=== PATIENT | female | born 1990 | race Caucasian/White ===

== ENCOUNTER 2017-01-24 19:56 | Emergency (ER) | payer MEDICAID, OTHER ==
[~2017-01-24] VITALS: Ht 154.9 cm; Wt 59.0 kg
[2017-01-24] MEDS ORDERED: IBUP600T26 PO (20:04)
[2017-01-24] MEDS ORDERED: TYLE500T78 PO (20:05)
[2017-01-24 22:20] LABS: BASO % 0.5 % (0.0-1.0); EOS # 0.3 K/mm3 (0.0-0.50); EOS % 3.4 % (0.0-3.0); LARGE UNSTAINED CELL # 0.1 K/mm3 (0.0-0.4); LARGE UNSTAINED CELL % 1.6 % (0.0-4.0); LYMPH # 2.6 K/mm3 (1.5-6.5); LYMPH % 27.9 % (24.0-44.0); MEAN CORPUSCULAR HEMOGLOBIN 31.1 pg (27.0-33.0); MEAN CORPUSCULAR VOLUME 91.6 fl (80.0-96.0); MONO # 0.5 K/mm3 (0.0-0.8); MONO % 5.7 % (0.0-5.0); NEUTROPHILS # 5.4 K/mm3 (1.8-7.7); NEUTROPHILS % 60.8 % (36.0-66.0); PLATELET COUNT, AUTOMATED 275 k/mm3 (150-450); RED CELL DISTRIBUTION WIDTH 12.9 % (11.5-14.5); WHITE BLOOD COUNT 8.8 K/mm3 (4.0-10.0)
[2017-01-24 22:21] LABS: CONTROL LINE UCG INT CTR LINE PRESENT
[2017-01-24 22:48] LABS: ANION GAP 8 MEQ/L (8-16); BLOOD UREA NITROGEN 17 MG/DL (7-18); CALCIUM LEVEL 9.2 MG/DL (8.5-10.1); CARBON DIOXIDE LEVEL 26 MEQ/L (21-32); CHLORIDE LEVEL 106 MEQ/L (98-107); CREATININE FOR GFR 0.69 MG/DL (0.55-1.02); GLOMERULAR FILTRATION RATE > 60.0 (>60); GLUCOSE, FASTING 100 MG/DL (70-105); POTASSIUM SERUM 4.1 MEQ/L (3.5-5.1); SODIUM LEVEL 140 MEQ/L (136-145)
[2017-01-24] MEDS ORDERED: MACR100C3 PO (23:27)
[2017-01-24 23:30] VITALS: BP 138/84
[2017-01-24] MEDS ORDERED: NITROFURANTOIN (MACROBID) 100 MG CAP PO ONE (23:30)
== END 2017-01-24 23:36 | disposition home or self-care (01) ==
LOC: M ED 21:12
DX: R31.9 Hematuria, unspecified (principal)

== ENCOUNTER → 2017-02-23 | Outpatient (CLI) | payer OTHER ==
[~2017-02-23] MED LIST: IBUP600T26 PO; MACR100C3 PO; TYLE500T78 PO
--- NOTE | 2017-02-23 17:55 | REP ---
KUB, ONE VIEW: HISTORY: Hematuria. A small amount of air is present in the small and large intestine. There are no air fluid level or dilated loops of intestine. There is no pneumoperitoneum. Calcifications are present overlying the left kidney consistent with nephrolithiasis. A 4 mm calcification is present inferior to the right L2 transverse process. This likely corresponds to the ureteral calculus seen in a recent CT examination. Degenerative change is present in the spine. IMPRESSION: 1. Left nephrolithiasis. 2. There is a 4 mm calcification inferior to the right L2 transverse process. This likely corresponds to the ureteral calculus seen in a recent CT examination. Signed by Jameson Monahan MD 02/24/2017 08:38 A
== END ==
LOC: M SMT 15:15
PROVIDERS: ATTEND Nurse Practitioner Women's Health
DX: R31.0 Gross hematuria (principal)

== ENCOUNTER → 2017-03-02 | Outpatient (CLI) | payer OTHER ==
[2017-03-02 15:44] LABS: INR 1.03
[2017-03-02 16:09] LABS: MEAN CORPUSCULAR HEMOGLOBIN 32.1 pg (27.0-33.0); MEAN CORPUSCULAR HGB CONC 34.2 g/dl (32.0-36.5); MEAN CORPUSCULAR VOLUME 93.8 fl (80.0-96.0); WHITE BLOOD COUNT 6.4 K/mm3 (4.0-10.0)
[2017-03-02 16:19] LABS: CONTROL LINE HCG INT CTR LINE PRESENT
[2017-03-02 16:27] LABS: ANION GAP 9 MEQ/L (8-16); BLOOD UREA NITROGEN 6 MG/DL (7-18); CALCIUM LEVEL 8.8 MG/DL (8.5-10.1); CARBON DIOXIDE LEVEL 26 MEQ/L (21-32); CHLORIDE LEVEL 105 MEQ/L (98-107); CREATININE FOR GFR 0.75 MG/DL (0.55-1.02); GLOMERULAR FILTRATION RATE > 60.0 (>60); GLUCOSE, FASTING 113 MG/DL (70-105); POTASSIUM SERUM 3.8 MEQ/L (3.5-5.1); SODIUM LEVEL 140 MEQ/L (136-145)
== END ==
LOC: M LAB 13:17
PROVIDERS: ATTEND Nurse Practitioner Women's Health
DX: Z01.818 Encounter for other preprocedural examination (principal); N20.0 Calculus of kidney

== ENCOUNTER → 2017-03-04 | Day surgery (SDC) | payer OTHER ==
[~2017-03-04] VITALS: Ht 154.9 cm; Wt 59.0 kg
[~2017-03-04] MED LIST changes: +KETOROLAC 30 MG/ML VIAL (J1885) As Ordered ONE; +KETOROLAC 30 MG/ML VIAL (J1885) IV ONE; +LIDOCAINE 2% INJ 100 MG/5 ML SDV (FOR ANES.) As Ordered ONE; +LR 1,000 ML IV SCH; +METOCLOPRAMIDE INJ 10MG/2ML VIAL (J2765) As Ordered ONE; +METOCLOPRAMIDE INJ 10MG/2ML VIAL (J2765) IV ONE; +MORPHINE 2 MG/ML 1ML SYRINGE As Ordered ONE; +ONDANSETRON 4MG/2ML VIAL (J2405) As Ordered ONE; +ONDANSETRON 4MG/2ML VIAL (J2405) IV PRN; +PERCOCET 5MG/325MG TAB PO PRN; +PROPOFOL 200 MG/20 ML VIAL As Ordered ONE; +fentaNYL 100 MCG/2 ML INJECTION (J3010) IV PRN; +traMADol 50 MG TAB PO PRN
--- NOTE | 2017-03-04 09:13 | ROOPDOC ---
[facility] Report Of Operation Report of Operation DATE OF PROCEDURE: 03/04/17 PREPROCEDURE DIAGNOSIS: Right Kidney Stone POSTPROCEDURE DIAGNOSIS: Right Kidney Stone PROCEDURE: Right Extracorporeal Shockwave Lithotripsy (ESWL) SURGEON: Paramjit Sweet MD BELL TIER: None ANESTHESIA: Monitored Anesthesia Care (MAC) OPERATIVE INDICATIONS: This is a 26 year old female who was found to have a 6mm right ureteropelvic junction stone. It was recommended that she come to the operating room for the above listed procedure. DESCRIPTION OF PROCEDURE: The patient was brought to the operating room and MAC anesthesia was administered. Prophylactic antibiotics were infused. She was then placed in the supine position in preparation for right ESWL. Fluoroscopy was utilized to monitor stone position and fragmentation. Shockwaves were then delivered to the right kidney stone, ungated. There were no arrhythmias. The stone appeared to fragment well. After 2,500 shocks the procedure was concluded. The patient was awakened from anesthesia and transported to the recovery room in stable condition. ESTIMATED BLOOD LOSS: 0mL COMPLICATIONS: None SPECIMENS: None PLAN: The patient will follow up in clinic in a few weeks with imaging prior to assess for residual stone burden. PARAMJIT SWEET MD March 04, 2017 09:13
[2017-03-04] MEDS: MORPHINE 2 MG/ML 1ML SYRINGE IV PRN ×2 (09:30→09:45)
[2017-03-04 10:40] VITALS: BP 132/78
== END | disposition home or self-care (01) ==
LOC: M SDC 07:12
PROVIDERS: ATTEND Urology
DX: N20.0 Calculus of kidney (principal); D68.62 Lupus anticoagulant syndrome; F32.9 Major depressive disorder, single episode, unspecified; M06.9 Rheumatoid arthritis, unspecified; K21.9 Gastro-esophageal reflux disease without esophagitis; M79.7 Fibromyalgia; F17.290 Nicotine dependence, other tobacco product, uncomplicated; J30.2 Other seasonal allergic rhinitis; Z88.5 Allergy status to narcotic agent

== ENCOUNTER → 2017-03-29 | Outpatient (CLI) | payer OTHER ==
[~2017-03-29] MED LIST changes: -KETOROLAC 30 MG/ML VIAL (J1885) As Ordered ONE; -KETOROLAC 30 MG/ML VIAL (J1885) IV ONE; -LIDOCAINE 2% INJ 100 MG/5 ML SDV (FOR ANES.) As Ordered ONE; -LR 1,000 ML IV SCH; -METOCLOPRAMIDE INJ 10MG/2ML VIAL (J2765) As Ordered ONE; -METOCLOPRAMIDE INJ 10MG/2ML VIAL (J2765) IV ONE; -MORPHINE 2 MG/ML 1ML SYRINGE As Ordered ONE; -ONDANSETRON 4MG/2ML VIAL (J2405) As Ordered ONE; -ONDANSETRON 4MG/2ML VIAL (J2405) IV PRN; -PERCOCET 5MG/325MG TAB PO PRN; -PROPOFOL 200 MG/20 ML VIAL As Ordered ONE; -fentaNYL 100 MCG/2 ML INJECTION (J3010) IV PRN; -traMADol 50 MG TAB PO PRN
--- NOTE | 2017-03-30 02:32 | REP ---
Clinical: Nephrolithiasis. Comparison: 02/23/2017. Findings: 2-3 mm bilateral nephroliths are suggested. The previously suggested 4 mm calculus in the right mid ureter is not visualized on current examination. Pelvis demonstrates stable calculi in the right haydee pelvis consistent with phleboliths. No further abnormal calcifications are identified. Bowel gas pattern is nonspecific. Skeletal structures are stable. Feminine hygiene product noted in the pelvis. Impression: 1. Few 2-3 mm bilateral nephroliths again suggested. 2. Previously identified 4 mm calculus in the mid-right ureter not visualized on current exam. Signed by Berto Diane MD 03/30/2017 02:24 A
== END ==
LOC: M SMT 11:30
PROVIDERS: ATTEND Nurse Practitioner Family
DX: N20.0 Calculus of kidney (principal)

== ENCOUNTER 2017-06-16 21:50 | Emergency (ER) | payer MEDICAID, OTHER ==
[~2017-06-16] VITALS: Ht 154.9 cm; Wt 56.8 kg
[~2017-06-16 21:50] MED LIST changes: +IBUP-1022 PO; -IBUP600T26 PO; -MACR100C3 PO; +MACR100C43 PO
[2017-06-16] MEDS ORDERED: IBUPROFEN 600 MG TAB PO ONE (23:15)
[2017-06-16 23:24] LABS: BASO % 0.4 % (0.0-1.0); EOS # 0.3 K/mm3 (0.0-0.50); EOS % 2.9 % (0.0-3.0); LARGE UNSTAINED CELL # 0.1 K/mm3 (0.0-0.4); LYMPH # 2.4 K/mm3 (1.5-6.5); LYMPH % 19.7 % (24.0-44.0); MEAN CORPUSCULAR HEMOGLOBIN 31.1 pg (27.0-33.0); MEAN CORPUSCULAR HGB CONC 33.3 g/dl (32.0-36.5); MEAN CORPUSCULAR VOLUME 93.2 fl (80.0-96.0); MONO # 0.6 K/mm3 (0.0-0.8); MONO % 5.6 % (0.0-5.0); NEUTROPHILS # 8.1 K/mm3 (1.8-7.7); NEUTROPHILS % 70.5 % (36.0-66.0); PLATELET COUNT, AUTOMATED 276 k/mm3 (150-450); RED CELL DISTRIBUTION WIDTH 13.1 % (11.5-14.5); WHITE BLOOD COUNT 11.5 K/mm3 (4.0-10.0)
[2017-06-17 00:02] LABS: ANION GAP 5 MEQ/L (8-16); BLOOD UREA NITROGEN 9 MG/DL (7-18); CALCIUM LEVEL 9.4 MG/DL (8.5-10.1); CARBON DIOXIDE LEVEL 27 MEQ/L (21-32); CHLORIDE LEVEL 107 MEQ/L (98-107); CREATININE FOR GFR 0.81 MG/DL (0.55-1.02); GLOMERULAR FILTRATION RATE > 60.0 (>60); GLUCOSE, FASTING 101 MG/DL (70-105); POTASSIUM SERUM 4.3 MEQ/L (3.5-5.1); SODIUM LEVEL 139 MEQ/L (136-145)
[2017-06-17 00:08] LABS: ERYTHROCYTE SEDIMENTATION RATE 9 mm/hr (0-20)
[2017-06-17 00:24] VITALS: BP 122/72
--- NOTE | 2017-06-17 08:29 | REP ---
Right ankle series: Four views. History: Right ankle swelling after trauma. Findings: Four views of the right ankle demonstrate an intact ankle mortise. No fracture or subluxation is seen. Impression: Negative right ankle views. Signed by Alexandru Robins MD 06/17/2017 08:57 A
== END 2017-06-17 00:47 | disposition home or self-care (01) ==
LOC: M ED 21:50
DX: M25.571 Pain in right ankle and joints of right foot (principal); M06.9 Rheumatoid arthritis, unspecified; F33.9 Major depressive disorder, recurrent, unspecified; M32.9 Systemic lupus erythematosus, unspecified; J30.9 Allergic rhinitis, unspecified; Z88.5 Allergy status to narcotic agent; F17.210 Nicotine dependence, cigarettes, uncomplicated

== ENCOUNTER 2017-08-02 15:11 | Emergency (ER) | payer OTHER ==
[~2017-08-02] VITALS: Ht 154.9 cm; Wt 56.4 kg
[2017-08-02 15:11] VITALS: BP 115/74
[2017-08-02] MEDS ORDERED: DOXY100C37 PO (15:33)
== END 2017-08-02 15:39 | disposition home or self-care (01) ==
LOC: M ED 15:11
DX: S40.862A Insect bite (nonvenomous) of left upper arm, initial encounter (principal); W57.XXXA Bitten or stung by nonvenomous insect and other nonvenomous arthropods, initial encounter; Y92.89 Other specified places as the place of occurrence of the external cause; Y93.89 Activity, other specified; Y99.8 Other external cause status; D68.62 Lupus anticoagulant syndrome; Z88.5 Allergy status to narcotic agent; J30.89 Other allergic rhinitis; F17.210 Nicotine dependence, cigarettes, uncomplicated

== ENCOUNTER 2017-08-27 11:48 | Emergency (ER) | payer OTHER ==
[~2017-08-27] VITALS: Ht 154.9 cm; Wt 59.1 kg
[~2017-08-27 11:48] MED LIST changes: +DOXY100C37 PO
[2017-08-27] MEDS ORDERED: NAPR500T3 PO (13:13)
[2017-08-27] MEDS ORDERED: ROBA500T PO (13:13)
[2017-08-27 13:25] VITALS: BP 119/74
== END 2017-08-27 13:22 | disposition home or self-care (01) ==
LOC: M ED 11:48
DX: M54.5 Low back pain (principal); M32.9 Systemic lupus erythematosus, unspecified; V49.40XA Driver injured in collision with unspecified motor vehicles in traffic accident, initial encounter; Y92.410 Unspecified street and highway as the place of occurrence of the external cause; Y93.89 Activity, other specified; Y99.9 Unspecified external cause status

== ENCOUNTER → 2017-12-18 | Outpatient (REF) | payer OTHER ==
[2017-12-18 16:37] LABS: APPEARANCE, URINE HAZY (CLEAR); BACTERIA, URINE AUTO NEGATIVE (NEGATIVE); BILIRUBIN, URINE AUTO NEGATIVE (NEGATIVE); BLOOD, URINE BLOOD NEGATIVE (NEGATIVE); COLOR, URINE YELLOW (YELLOW); GLUCOSE, URINE (UA) AUTO NEGATIVE (NEGATIVE); KETONE, URINE AUTO NEGATIVE (NEGATIVE); LEUKOCYTE ESTERASE, URINE AUTO NEGATIVE (NEGATIVE); MUCUS, URINE SMALL (NEGATIVE); NITRITE, URINE AUTO NEGATIVE (NEGATIVE); PROTEIN, URINE AUTO NEGATIVE (NEGATIVE); RBC, URINE AUTO 3 /HPF (0-3); SPECIFIC GRAVITY URINE AUTO 1.013 (1.002-1.035); SQUAMOUS EPITHELIAL CELL UR AU 0 /HPF (0-6); UROBILINOGEN, URINE AUTO 0.2 mg/dL (0.0-2.0); WBC, URINE AUTO 1 /HPF (0-3)
== END ==
LOC: M LAB REF 15:54
DX: N39.0 Urinary tract infection, site not specified (principal)
CPT/HCPCS: 81001

== ENCOUNTER → 2017-12-22 | Outpatient (REF) | payer OTHER ==
[2017-12-22 12:35] LABS: APPEARANCE, URINE HAZY (CLEAR); BACTERIA, URINE AUTO NEGATIVE (NEGATIVE); BILIRUBIN, URINE AUTO NEGATIVE (NEGATIVE); BLOOD, URINE BLOOD NEGATIVE (NEGATIVE); COLOR, URINE YELLOW (YELLOW); GLUCOSE, URINE (UA) AUTO NEGATIVE (NEGATIVE); KETONE, URINE AUTO NEGATIVE (NEGATIVE); LEUKOCYTE ESTERASE, URINE AUTO NEGATIVE (NEGATIVE); MUCUS, URINE SMALL (NEGATIVE); NITRITE, URINE AUTO NEGATIVE (NEGATIVE); PROTEIN, URINE AUTO NEGATIVE (NEGATIVE); RBC, URINE AUTO 18 /HPF (0-3); SPECIFIC GRAVITY URINE AUTO 1.015 (1.002-1.035); SQUAMOUS EPITHELIAL CELL UR AU 3 /HPF (0-6); UROBILINOGEN, URINE AUTO 0.2 mg/dL (0.0-2.0); WBC, URINE AUTO 1 /HPF (0-3)
== END ==
LOC: M LAB REF 12:10
DX: N39.0 Urinary tract infection, site not specified (principal)

== ENCOUNTER 2017-12-23 17:22 | Emergency (ER) | payer OTHER ==
[2017-12-23 18:32] LABS: KETONE, URINE AUTO RFX NEGATIVE (NEGATIVE); LEUKOCYTE ESTERASE UR AUTO RFX NEGATIVE (NEGATIVE); MUCUS, URINE RFX SMALL (NEGATIVE); NITRITE, URINE AUTO RFX NEGATIVE (NEGATIVE); RBC, URINE AUTO RFX 14 /HPF (0-3); SPECIFIC GRAVITY UR AUTO RFX 1.013 (1.002-1.035); SQUAM EPITHELIAL CELL UR AURFX 3 /HPF (0-6); WBC, URINE AUTO RFX 1 /HPF (0-3)
== END 2017-12-23 19:19 | disposition left against medical advice (07) ==
LOC: M ED 17:22
DX: Z53.21 Procedure and treatment not carried out due to patient leaving prior to being seen by health care provider (principal)

== ENCOUNTER → 2017-12-23 | Outpatient (CLI) | payer OTHER | LOC: M RAD 12:25 | DX: R10.31 Right lower quadrant pain (principal) | CPT/HCPCS: 76856 ==

== ENCOUNTER 2018-04-18 06:48 | Emergency (ER) | payer OTHER | END 2018-04-18 07:38 | disposition home or self-care (01) | LOC: M ED 06:48 | DX: M79.645 Pain in left finger(s) (principal); M32.9 Systemic lupus erythematosus, unspecified; J30.2 Other seasonal allergic rhinitis; Z72.0 Tobacco use; Z88.5 Allergy status to narcotic agent | CPT/HCPCS: 99282 ==

== ENCOUNTER → 2018-08-09 | Outpatient (CLI) | payer OTHER | LOC: M RAD 10:38 | DX: M79.641 Pain in right hand (principal); R60.0 Localized edema | CPT/HCPCS: 73130 ==

== ENCOUNTER → 2018-10-10 | Outpatient (REF) | payer OTHER ==
[~2018-10-10] MED LIST changes: +KEFL500C17 PO; +NAPR-885 PO; +PRED20TA PO; +ROBA500T PO; +TRAM50TA2 PO
[2018-10-10 16:47] LABS: BASO % 0.6 % (0.0-1.0); EOS # 0.2 10^3/uL (0.0-0.50); EOS % 3.3 % (0.0-3.0); HEMATOCRIT 44.4 % (36.0-47.0); HEMOGLOBIN 15.1 g/dl (12.0-15.5); LYMPH # 1.9 10^3/uL (1.5-6.5); LYMPH % 27.7 % (24.0-44.0); MEAN CORPUSCULAR HEMOGLOBIN 31.1 pg (27.0-33.0); MEAN CORPUSCULAR VOLUME 91.4 fl (80.0-96.0); MONO # 0.5 10^3/uL (0.0-0.8); MONO % 7.8 % (0.0-5.0); NEUTROPHILS # 4.2 10^3/uL (1.8-7.7); NEUTROPHILS % 60.3 % (36.0-66.0); PLATELET COUNT, AUTOMATED 286 10^3/uL (150-450); RED BLOOD COUNT 4.86 10^6/uL (4.00-5.40); WHITE BLOOD COUNT 6.9 10^3/uL (4.0-10.0)
[2018-10-10 16:50] LABS: APPEARANCE, URINE CLEAR (CLEAR); BACTERIA, URINE AUTO NEGATIVE (NEGATIVE); BILIRUBIN, URINE AUTO NEGATIVE (NEGATIVE); BLOOD, URINE BLOOD NEGATIVE (NEGATIVE); COLOR, URINE YELLOW (YELLOW); GLUCOSE, URINE (UA) AUTO NEGATIVE (NEGATIVE); KETONE, URINE AUTO NEGATIVE (NEGATIVE); LEUKOCYTE ESTERASE, URINE AUTO NEGATIVE (NEGATIVE); MUCUS, URINE SMALL (NEGATIVE); NITRITE, URINE AUTO NEGATIVE (NEGATIVE); PROTEIN, URINE AUTO NEGATIVE (NEGATIVE); RBC, URINE AUTO 1 /HPF (0-3); SPECIFIC GRAVITY URINE AUTO 1.014 (1.002-1.035); SQUAMOUS EPITHELIAL CELL UR AU 1 /HPF (0-6); UROBILINOGEN, URINE AUTO 0.2 mg/dL (0.0-2.0); WBC, URINE AUTO 1 /HPF (0-3)
[2018-10-10 17:01] LABS: ALBUMIN 4.3 GM/DL (3.2-5.2); ALT/SGPT 13 U/L (12-78); BILIRUBIN,TOTAL 0.4 MG/DL (0.2-1.0); BLOOD UREA NITROGEN 8 MG/DL (7-18); C REACTIVE PROTEIN QUANTITATIV 0.42 MG/DL (0.00-0.30); CALCIUM LEVEL 9.4 MG/DL (8.5-10.1); CARBON DIOXIDE LEVEL 26 MEQ/L (21-32); CHLORIDE LEVEL 103 MEQ/L (98-107); GLOMERULAR FILTRATION RATE > 60.0 (>60); GLUCOSE, FASTING 82 MG/DL (70-100); POTASSIUM SERUM 4.2 MEQ/L (3.5-5.1); RHEUMATOID FACTOR QUANT 85.6 IU/ML (<15.0); SODIUM LEVEL 138 MEQ/L (136-145); TOTAL PROTEIN 8.1 GM/DL (6.4-8.2)
[2018-10-10 17:41] LABS: ERYTHROCYTE SEDIMENTATION RATE 4 mm/hr (0-20)
[2018-10-13 00:31] LABS: ANA (HEP2) Positive (.); CYCLIC CITRULLINATED PEPTIDE > 250 units (0-19)
== END ==
LOC: M SFHCLERA 10:28
PROVIDERS: ATTEND Family Medicine
DX: M32.9 Systemic lupus erythematosus, unspecified (principal)

== ENCOUNTER → 2019-03-30 | Outpatient (REF) | payer OTHER, SELFPAY ==
[2019-03-30 14:17] LABS: CHLAMYDIA DNA AMPLIFICATION NEGATIVE (NEGATIVE); GC DNA AMPLIFICATION NEGATIVE (NEGATIVE)
== END ==
LOC: M SFHCLERA 09:50
PROVIDERS: ATTEND Family Medicine
DX: N76.0 Acute vaginitis (principal)

== ENCOUNTER 2019-11-05 13:53 | Emergency (ER) | payer MEDICAID, OTHER, SELFPAY ==
[~2019-11-05] VITALS: Ht 154.9 cm; Wt 55.5 kg
[2019-11-05] MEDS ORDERED: IBUP200C25 PO (14:42)
[2019-11-05] MEDS ORDERED: NAPR220C14 PO (14:42)
[2019-11-05 15:33] LABS: BASO % 0.7 % (0.0-1.0); EOS # 0.2 10^3/uL (0.0-0.5); EOS % 3.8 % (0.0-3.0); HEMATOCRIT 41.3 % (36.0-47.0); HEMOGLOBIN 13.5 g/dl (12.0-15.5); LYMPH # 1.5 10^3/uL (1.5-5.0); MEAN CORPUSCULAR HGB CONC 32.7 g/dl (32.0-36.5); MEAN CORPUSCULAR VOLUME 91.8 fl (80.0-96.0); MONO # 0.5 10^3/uL (0.0-0.8); MONO % 8.9 % (0.0-5.0); NEUTROPHILS # 3.7 10^3/uL (1.5-8.5); NEUTROPHILS % 61.4 % (36.0-66.0); PLATELET COUNT, AUTOMATED 283 10^3/uL (150-450)
[2019-11-05 15:51] LABS: ALBUMIN 4.1 GM/DL (3.2-5.2); ALT/SGPT 14 U/L (12-78); BILIRUBIN,DIRECT 0.1 MG/DL (0.0-0.2); BILIRUBIN,TOTAL 0.3 MG/DL (0.2-1.0); BLOOD UREA NITROGEN 8 MG/DL (7-18); CALCIUM LEVEL 9.1 MG/DL (8.5-10.1); CARBON DIOXIDE LEVEL 29 MEQ/L (21-32); CHLORIDE LEVEL 106 MEQ/L (98-107); CREATININE FOR GFR 0.69 MG/DL (0.55-1.30); GLOMERULAR FILTRATION RATE > 60.0 (>60); GLUCOSE, FASTING 111 MG/DL (70-100); LIPASE 78 U/L (73-393); POTASSIUM SERUM 4.1 MEQ/L (3.5-5.1); SODIUM LEVEL 140 MEQ/L (136-145); TOTAL PROTEIN 7.6 GM/DL (6.4-8.2)
--- NOTE | 2019-11-05 17:18 | REPVR ---
PROCEDURE INFORMATION: Exam: US Pelvis, Transvaginal Exam date and time: 11/05/2019 4:56 PM Age: 29 years old Clinical indication: Pelvic pain TECHNIQUE: Imaging protocol: Real-time transvaginal pelvic ultrasound with image documentation. Transvaginal imaging was used for better evaluation of the endometrium and adnexa. COMPARISON: US PELVIC NON-OB COMPLETE 12/23/2017 12:50 PM FINDINGS: Uterus/cervix: Uterus measures 8.4 x 4.4 x 4.9 cm. Endometrial echo complex measures 8 mm. Right adnexa: Right ovary measures 2.8 x 2 x 2.3 cm. Normal flow. Hypoechoic predominantly solid lesion with a cystic center in the right ovary measures 1.4 x 1 x 1.2 cm likely representing a corpus luteum. Left adnexa: Left ovary measures 2.6 x 1.4 x 2.3 cm. Normal flow. Cyst in the left ovary measures 1.5 x 0.8 x 1.5 cm. Free fluid: None. IMPRESSION: No acute findings. Electronically signed by: Anthony Silva On 11/05/2019 17:18:23 PM
[2019-11-05 18:15] VITALS: BP 122/72
[2019-11-05 18:16] LABS: CHLAMYDIA DNA AMPLIFICATION NEGATIVE (NEGATIVE); GC DNA AMPLIFICATION NEGATIVE (NEGATIVE)
== END 2019-11-05 18:16 | disposition home or self-care (01) ==
LOC: M ED 13:53
DX: N83.291 Other ovarian cyst, right side (principal); N83.292 Other ovarian cyst, left side; M32.9 Systemic lupus erythematosus, unspecified; M06.9 Rheumatoid arthritis, unspecified; M79.7 Fibromyalgia; Z87.442 Personal history of urinary calculi; F17.200 Nicotine dependence, unspecified, uncomplicated; F12.10 Cannabis abuse, uncomplicated

== ENCOUNTER 2020-05-10 16:57 | Emergency (ER) | payer MEDICAID, OTHER ==
[~2020-05-10] VITALS: Ht 160 cm; Wt 56.8 kg
[~2020-05-10 16:57] MED LIST changes: +IBUP200C25 PO; +NAPR220C14 PO
[2020-05-10] MEDS ORDERED: ISOVUE-370 76% 100ML VIAL As Ordered ONE (18:53)
[2020-05-10 20:44] VITALS: BP 119/68
--- NOTE | 2020-05-10 21:09 | REPVR ---
PROCEDURE INFORMATION: Exam: CT Angiography Chest With Contrast Exam date and time: 05/10/2020 7:46 PM Age: 29 years old Clinical indication: Chest pain; Additional info: Chest pain/elevated d-dimer TECHNIQUE: Imaging protocol: Computed tomographic angiography of the chest with intravenous contrast. 3D rendering: MIP and/or 3D reconstructed images were created by the technologist. Radiation optimization: All CT scans at this facility use at least one of these dose optimization techniques: automated exposure control; mA and/or kV adjustment per patient size (includes targeted exams where dose is matched to clinical indication); or iterative reconstruction. Contrast material: ISOVUE 370; Contrast volume: 75 ml; Contrast route: INTRAVENOUS (IV); COMPARISON: CR Chest, 1 view 05/10/2020 6:20 PM FINDINGS: Pulmonary arteries: Normal. No pulmonary emboli. Aorta: Unremarkable. No aortic aneurysm. No aortic dissection. Lungs: Unremarkable. No consolidation. No masses. Pleural space: Unremarkable. No pneumothorax. No pleural effusion. Heart: Unremarkable. No cardiomegaly. No pericardial effusion. Lymph nodes: Unremarkable. No enlarged lymph nodes. Bones/joints: Unremarkable. No acute fracture. Soft tissues: Unremarkable. IMPRESSION: No acute findings. Electronically signed by: Heraclio Arrieta On 05/10/2020 21:09:00 PM
--- NOTE | 2020-05-11 09:13 | REP ---
CHEST: REASON: Dyspnea. FINDINGS: The technique utilized in obtaining the radiograph has magnified the cardiac silhouette and accentuated the interstitial markings. The superior mediastinal structures are midline. The cardiac silhouette is unremarkable in size, shape, and position. The diaphragmatic surfaces of the lungs are regular, and the costophrenic angles are clear. The pulmonary perez are clear. The imaged osseous structures are intact. IMPRESSION: There is no acute cardiopulmonary disease. Electronically Signed by Srikanth Ellison DO 05/11/2020 09:14 A
--- NOTE | 2020-05-12 19:08 | ECGEPIP ---
[facility] - ED Test Date: 2020-05-10 Pat Name: PIO NEVILLE Department: Room: - Gender: Female Metrology Manager: bibi : 1990 Requested By: Laura Francois Order Number: [id number] Reading MD: Jaycob Almaraz Measurements Intervals [place] Rate: 58 P: 40 DE: 134 QRS: 66 QRSD: 98 T: 31 QT: 383 QTc: 376 Interpretive Statements SINUS BRADYCARDIA NONSPECIFIC T WAVE ABNORMALITIES NO PRIORS FOR COMPARISON Electronically Signed on 05-12-2020 19:08:38 EDT by Jaycob Almaraz
== END 2020-05-10 20:45 | disposition home or self-care (01) ==
LOC: M ED 16:57
DX: J06.9 Acute upper respiratory infection, unspecified (principal); R00.1 Bradycardia, unspecified; Z53.21 Procedure and treatment not carried out due to patient leaving prior to being seen by health care provider; F41.9 Anxiety disorder, unspecified; F32.9 Major depressive disorder, single episode, unspecified; Z72.0 Tobacco use
CPT/HCPCS: 71045; 71275; 84702; 85379; 87880; 93005; 99284; Q9967; U0003

== ENCOUNTER 2020-05-21 16:30 | Emergency (ER) | payer OTHER ==
--- NOTE | 2020-07-12 10:44 | REP ---
CT OF THE CERVICAL SPINE: HISTORY: Neck pain. TECHNIQUE: Axial noncontrast images from the skull base to the thoracic inlet with coronal and sagittal reformations. FINDINGS: Alignment and lordosis is maintained. Vertebral bodies are intact. No acute fracture/compression injury or subluxation is appreciated. Very minimal age related changes at the C5-6 and C6-7 levels include endplate sclerosis with subtle marginal spurring and minimal disc space narrowing. The posterior elements and spinous processes are intact. The neural foramen appear patent. The spinal canal appears patent. The paravertebral soft tissues are within normal limits. IMPRESSION: Very minimal age related changes at the C5-6 and C6-7 levels. MTDD
== END 2020-05-21 17:31 | disposition home or self-care (01) ==
LOC: M ED 16:30
DX: S16.1XXA Strain of muscle, fascia and tendon at neck level, initial encounter (principal); T75.1XXA Unspecified effects of drowning and nonfatal submersion, initial encounter; X58.XXXA Exposure to other specified factors, initial encounter; Y92.832 Beach as the place of occurrence of the external cause; Y93.11 Activity, swimming; M32.9 Systemic lupus erythematosus, unspecified; F33.9 Major depressive disorder, recurrent, unspecified; F17.210 Nicotine dependence, cigarettes, uncomplicated

== ENCOUNTER → 2020-06-11 | Outpatient (REF) | payer OTHER ==
[2020-08-05 03:46] LABS: HCG, SERUM QUANTITATIVE < 1.0 MIU/ML
[2020-08-05 04:05] LABS: HCG, SERUM QUALITATIVE NEGATIVE (NEGATIVE)
== END ==
LOC: M SFHCLERA 11:27
PROVIDERS: ATTEND Family Medicine
DX: Z32.00 Encounter for pregnancy test, result unknown (principal)

== ENCOUNTER 2020-06-16 08:43 | Emergency (ER) | payer OTHER ==
[~2020-06-16] VITALS: Ht 154.9 cm; Wt 53.8 kg
[2020-06-16] MEDS ORDERED: NS 1,000 ML IV ONE (09:30)
[2020-06-16 10:02] LABS: BASO # 0.1 10^3/uL (0.0-0.2); BASO % 0.8 % (0.0-1.0); EOS # 0.2 10^3/uL (0.0-0.5); EOS % 3.3 % (0.0-3.0); HEMATOCRIT 37.3 % (36.0-47.0); HEMOGLOBIN 12.9 g/dl (12.0-15.5); LYMPH # 1.2 10^3/uL (1.5-5.0); LYMPH % 19.6 % (24.0-44.0); MEAN CORPUSCULAR HEMOGLOBIN 31.5 pg (27.0-33.0); MEAN CORPUSCULAR HGB CONC 34.6 g/dl (32.0-36.5); MEAN CORPUSCULAR VOLUME 91.2 fl (80.0-96.0); MONO # 0.5 10^3/uL (0.0-0.8); MONO % 8.3 % (0.0-5.0); NEUTROPHILS # 4.1 10^3/uL (1.5-8.5); NEUTROPHILS % 67.7 % (36.0-66.0); PLATELET COUNT, AUTOMATED 270 10^3/uL (150-450); RED BLOOD COUNT 4.09 10^6/uL (4.00-5.40); WHITE BLOOD COUNT 6.1 10^3/uL (4.0-10.0)
[2020-06-16 10:20] LABS: ALBUMIN 3.6 GM/DL (3.2-5.2); ALT/SGPT 12 U/L (12-78); BILIRUBIN,DIRECT < 0.1 MG/DL (0.0-0.2); BILIRUBIN,TOTAL 0.3 MG/DL (0.2-1.0); BLOOD UREA NITROGEN 10 MG/DL (7-18); CALCIUM LEVEL 8.9 MG/DL (8.5-10.1); CARBON DIOXIDE LEVEL 26 MEQ/L (21-32); CHLORIDE LEVEL 108 MEQ/L (98-107); CREATININE FOR GFR 0.67 MG/DL (0.55-1.30); GLOMERULAR FILTRATION RATE > 60.0 (>60); GLUCOSE, FASTING 86 MG/DL (70-100); HCG, SERUM QUANTITATIVE < 1.0 MIU/ML; SODIUM LEVEL 141 MEQ/L (136-145)
[2020-06-16 10:36] VITALS: BP 120/79
[2020-06-16 10:51] LABS: CHLAMYDIA DNA AMPLIFICATION NEGATIVE (NEGATIVE); GC DNA AMPLIFICATION NEGATIVE (NEGATIVE)
== END 2020-06-16 10:47 | disposition home or self-care (01) ==
LOC: M ED 08:43
DX: N94.4 Primary dysmenorrhea (principal); N93.9 Abnormal uterine and vaginal bleeding, unspecified; M32.9 Systemic lupus erythematosus, unspecified; Z87.42 Personal history of other diseases of the female genital tract; F17.200 Nicotine dependence, unspecified, uncomplicated

== ENCOUNTER 2020-11-10 10:12 | Emergency (ER) | payer OTHER ==
[~2020-11-10] VITALS: Ht 154.9 cm; Wt 52.8 kg
--- OUTSIDE RECORDS SUMMARY | 2020-11-10 10:19 | CCD | Continuity of Care Document ---
Author Author Ondina MOODY DPDavid Organization Unknown Address [address] [place] [address], [address] [place] [address] Phone [phone] Problems Description No Information Available Social History Type Date Description Comments Sex Unknown ETOH Use Occasionally consumes liquor may be once a month Tobacco Use Start: Unknown Patient is a current smoker, smo kes every day 15 year hx smoking 1 PPD Allergies, Adverse Reactions, Alerts Description No Known Drug Allergies Medications Active Medications SIG Qnty Indications Ordering Provide r Date Naproxen 500mg Tablets 1 tab twice daily with food 60tabs Fredy Moody DPM 10/14/2020 Sertraline HCL 100mg Tablets Jameson King DO Amoxicillin/Clavulanate Potassium 875-125mg Tablets Take One Tablet By Mouth Twice A Day For 10 Days Unknown Valacyclovir HCL 1gm Tablets Take One Tablet By Mouth Three Times A Day For 10 Days Un known Sertraline HCL 50mg Tablets Take One Tablet By Mouth Every Day Unknown Tizanidine HCL 4mg Tablets Take One Tablet By Mouth Every Evening as Needed For Muscle Spasms Unknown Immunizations Description No Information Available Vital Signs Date Vital Result Comment 10/14/2020 2:22pm Height 61 inches 5'1" Weight 116.00 lb BP Systolic 92 mmHg BP Diastolic 58 mmHg Heart Rate 63 /min BMI (Body Mass Index) 21.9 kg/m2 Results Description No Information Available Procedures Date Code Description Status 10/14/2020 39540 X-Ray Foot Complete Completed Medical Devices Description No Information Available Encounters Type Date Location Provider Dx Diagnosis Office Visit 10/14/2020 2:15p [facility] Fredy Moody DPM M21.612 Bunion of left foot M21.622 Bunionette of left foot Assessments Date Code Description Provider 10/14/2020 M21.612 Bunion of left foot Fredy ospina DPM 10/14/2020 M21.622 Bunionette of left foot Fredy Moody DPM Plan of Treatment Future Appointment(s):* 11/18/2020 2:00 pm - Fredy Moody DPM at [facility] Functional Status Description No Information Available Mental Status Description No Information Available Referrals Description No Information Available
--- OUTSIDE RECORDS SUMMARY | 2020-11-10 10:19 | CCD | Continuity of Care Document ---
Author Author Ondina GONZALEZ DPM Organization Unknown Address [address] [place] [address], [address] [place] [address] Phone [phone] Problems Description No Information Available Social History [...] tab twice daily with food 60tabs Fredy Gonzalez DPM 10/14/2020 Sertraline HCL 100mg Tablets Jameson [...] kg/m2 Results Description No Information Available Procedures Description No Information Available Medical Devices Description No Information Available Encounters Description No Information Available Assessments Description No Information Available Plan of Treatment Future Appointment(s):* 11/18/2020 2:00 pm - Fredy Gonzalez DPM at [place] [facility] Functional Status Description No Information Available Mental Status Description No Information Available Referrals Description No Information Available
--- OUTSIDE RECORDS SUMMARY | 2020-11-10 10:19 | CCD ---
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 Name Role Phone Moe MOODY DPM Unavailable Unavailable Moe MOODY DPM Unavailable Unavailable Moe MOODY DPM Unavailable Unavailable Moe MOODY DPM Unavailable Unavailable Moe MOODY DPM Unavailable Unavailable Moe MOODY DPM Unavailable Unavailable Moe MOODY DPM Unavailable Unavailable MAJAK, R NELDA DPM Unavailable Unavailable MAJAK, R NELDA DPM Unavailable Unavailable MAJAK, R NELDA DPM Unavailable Unavailable MAJAK, R NELDA DPM Unavailable Unavailable MAJAK, R NELDA DPM Unavailable Unavailable MAJAK, R NELDA DPM Unavailable Unavailable MAJAK, R NELDA DPM Unavailable Unavailable MAJAK, R NELDA DPM Unavailable Unavailable MAJAK, R NELDA DPM Unavailable Unavailable MAJAK, R NELDA DPM Unavailable Unavailable MAJAK, R NELDA DPM Unavailable Unavailable MAJAK, R NELDA DPM Unavailable Unavailable MAJAK, R NELDA DPM Unavailable Unavailable MAJAK, R NELDA DPM Unavailable Unavailable MAJAK, R NELDA DPM Unavailable Unavailable MAJAK, R NELDA DPM Unavailable Unavailable MAJAK, R NELDA DPM Unavailable Unavailable MAJAK, R NELDA DPM Unavailable Unavailable MAJAK, R NELDA DPM Unavailable Unavailable MAJAK, R NELDA DPM Unavailable Unavailable MAJAK, R NELDA DPM Unavailable Unavailable MAJAK, R NELDA DPM Unavailable Unavailable MAJAK, R NELDA DPM Unavailable Unavailable Campanaro, Mare Manisha PA Unavailable Unavailable Campanaro, Mare Manisha PA Unavailable Unavailable Campanaro, Mare Manisha PA Unavailable Unavailable Campanaro, Mare Manisha PA Unavailable Unavailable Campanaro, Mare Manisha PA Unavailable Unavailable Campanaro, Mare Manisha PA Unavailable Unavailable Campanaro, Mare Manisha PA Unavailable Unavailable Campanaro, Mare Manisha PA Unavailable Unavailable Campanaro, Mare Manisha PA Unavailable Unavailable Campanaro, Mare Manisha PA Unavailable Unavailable Campanaro, Mare Manisha PA Unavailable Unavailable Campanaro, Mare Manisha PA Unavailable Unavailable Campanaro, Mare Manisha PA Unavailable Unavailable Campanaro, Mare Manisha PA Unavailable Unavailable Campanaro, Mare Manisha PA Unavailable Unavailable Campanaro, Mare Manisha PA Unavailable Unavailable Campanaro, Mare Manisha PA Unavailable Unavailable Campanaro, Mare Manisha PA Unavailable Unavailable GUGA, SAMUEL PA Unavailable Unavailable GUGA, SAMUEL PA Unavailable Unavailable GUGA, SAMUEL PA Unavailable Unavailable GUGA, SAMUEL PA Unavailable Unavailable GUGA, SAMUEL PA Unavailable Unavailable GUGA, SAMUEL PA Unavailable Unavailable Jade, Doreen SOLE EDGE INKER MACHINE Unavailable Unavailable Jade, Doreen SOLE EDGE INKER MACHINE Unavailable Unavailable Jade, Doreen SOLE EDGE INKER MACHINE Unavailable Unavailable Jade, Doreen SOLE EDGE INKER MACHINE Unavailable Unavailable Jade, Doreen SOLE EDGE INKER MACHINE Unavailable Unavailable Jade, Doreen SOLE EDGE INKER MACHINE Unavailable Unavailable Jade, Doreen SOLE EDGE INKER MACHINE Unavailable Unavailable Jade, Doreen SOLE EDGE INKER MACHINE Unavailable Unavailable Jade, Doreen SOLE EDGE INKER MACHINE Unavailable Unavailable Jade, Doreen SOLE EDGE INKER MACHINE Unavailable Unavailable Jade, Doreen SOLE EDGE INKER MACHINE Unavailable Unavailable Re-disclosure Warning The records that you are about to access may contain information from federally-assisted alcohol or drug abuse programs. If such information is present, then the following federally mandated warning applies: This information has been disclosed to you from records protected by federal confidentiality rules (42 CFR part 2). The federal rules prohibit you from making any further disclosure of this information unless further disclosure is expressly permitted by the written consent of the person to whom it pertains or as otherwise permitted by 42 CFR part 2. A general authorization for the release of medical or other information is NOT sufficient for this purpose. The Federal rules restrict any use of the information to criminally investigate or prosecute any alcohol or drug abuse patient.The records that you are about to access may contain highly sensitive health information, the redisclosure of which is protected by Article 27-F of the [facility] Public Health law. If you continue you may have access to information: Regarding HIV / AIDS; Provided by facilities licensed or operated by the [facility] Office of Mental Health; or Provided by the [facility] Office for People With Developmental Disabilities. If such information is present, then the following [facility] mandated warning applies: This information has been disclosed to you from confidential records which are protected by state law. State law prohibits you from making any further disclosure of this information without the specific written consent of the person to whom it pertains, or as otherwise permitted by law. Any unauthorized further disclosure in violation of state law may result in a fine or senior living sentence or both. A general authorization for the release of medical or other information is NOT sufficient authorization for further disc losure. Allergies and Adverse Reactions Type Description Substance Reaction Status Data Source(s ) Drug allergy Percocet acetaminophen / oxycodone Severe headache Ac tive eCW1 ([facility]) Vicodin Vicodin Vicodin Nausea/Vomiting Active eCW1 ([facility]) Family History Family Member Name Family Member Gender Family Member Status Date o f Status Description Data Source(s) Unknown Male Problem MEDENT ([facility]) Encounters Encounter Providers Location Date Indications Data Source(s ) Outpatient Attender: NELDA MOODY [facility] Office 09/25 01:15:00 PM EST MEDENT ([facility] Unknown [address] [facility] [address] 05/13/2020 12:00:00 AM EDT eCW1 [facility] Unknown [address] [facility] [address] 05/06/2020 12:00:00 AM EDT [facility] Unknown [address] [facility] [address] 04/15/2020 12:00:00 AM EDT eCW1 ([facility] ([facility]) [facility] Scheduled Visit [address] [place] [address] 04/12/2020 12:00:00 AM EDT eCW1 ([facility]) [facility] [address] [place] [address] 04/03/2020 12:00:00 AM EDT eCW1 ([facility]) Unknown [address] [facility] [address] 03/28/2020 12:00:00 AM EDT [facility]CW1 [facility] Outpatient Attender: Doreen burt 03/26/2020 04:45:00 PM EDT MEDENT ([facility] Outpatient [address] [facility] [address] 03/21/2020 12:00:00 AM EDT eCW1 ([facility]) [facility] [address] [place] [address] 03/20/2020 12:00:00 AM EDT eCW1 ([facility]) [facility] [place] [address] [facility] [address] 03/06/2020 12:00:00 AM EDT eCW1 ([facility]) Outpatient Attender: Manisha quintero 12/28/2019 03:40:00 PM EST MEDENT ([facility]) Outpatient Referrer: SAMUEL HYMAN 11/29/2019 02:17:00 PM EST [facility] [place] [address] [facility] [address] 11/15/2019 12:00:00 AM EST eCW1 ([facility]) [facility] [place] [address] [facility] [address] 11/06/2019 12:00:00 AM EST eCW1 ([facility]) Medications Medication Brand Name Start Date Product Form Dose Route Admi nistrative Instructions Pharmacy Instructions Status Indications Reaction Description Data Source(s) 500 mg 2020 12:00:00 AM EST tablet 60 TAKE ONE TABLET BY MOUTH TWICE A DAY WITH FOOD TAKE ONE TABLET BY MOUTH TWICE A DAY WITH FOOD SOLD: 10/20/2020 [facility] Naproxen 500 MG Oral Tablet Naproxen 10/14/2020 12:00:00 AM EST active MEDENT ([facility] 100 mg 03/28/2020 12:00:00 AM EDT tablet 30 TAKE ONE TABLET BY MOUTH EVERY DAY TAKE ONE TABLET BY MOUTH EVERY DAY SOLD: 03/29/2020 [facility] 100 mg 03/28/2020 12:00:00 AM EDT tablet 30 TAKE ONE TABLET BY MOUTH EVERY DAY TAKE ONE TABLET BY MOUTH EVERY DAY SOLD: 05/04/2020 [facility] Sertraline 100 MG Oral Tablet Sertraline HCl 100 MG Sertrali ne HCl 100 MG 03/28/2020 12:00:00 AM EDT 1.0 {tablet} active Sertraline HCl 100 MG eCW1 ([facility]) Sertraline 100 MG Oral Tablet Sertraline HCl 100 MG Sertrali ne HCl 100 MG 03/28/2020 12:00:00 AM EDT 1.0 {tablet} active Sertraline HCl 100 MG eCW1 ([facility]) Sertraline 100 MG Oral Tablet Sertraline HCl 100 MG Sertrali ne HCl 100 MG 03/28/2020 12:00:00 AM EDT 1.0 {tablet} active Sertraline HCl 100 MG eCW1 ([facility]) Sertraline 100 MG Oral Tablet Sertraline HCl 100 MG Sertrali ne HCl 100 MG 03/28/2020 12:00:00 AM EDT 1.0 {tablet} active Sertraline HCl 100 MG eCW1 ([facility]) Sertraline 100 MG Oral Tablet Sertraline HCl 100 MG Sertrali ne HCl 100 MG 03/28/2020 12:00:00 AM EDT 1.0 {tablet} active Sertraline HCl 100 MG eCW1 ([facility]) Sertraline 100 MG Oral Tablet Sertraline HCl 100 MG Sertrali ne HCl 100 MG 03/28/2020 12:00:00 AM EDT 1.0 {tablet} active Sertraline HCl 100 MG eCW1 ([facility]) 1 gram 03/26/2020 12:00:00 AM EDT tablet 30 TAKE ONE TABLET BY MOUTH THREE TIMES A DAY FOR 10 DAYS TAKE ONE TABLET BY MOUTH THREE TIMES A DAY FOR 10 DAYS SOLD: 03/27/2020 [facility] 875-125 mg 03/26/2020 12:00:00 AM EDT tablet 20 TAKE ONE TABLET BY MOUTH TWICE A DAY FOR 10 DAYS TAKE ONE TABLET BY MOUTH TWICE A DAY FOR 10 DAYS SOLD: 03/27/2020 [facility] valacyclovir 1000 MG Oral Tablet Valacyclovir HCL 03/26/2020 12:00: 00 AM EDT active MEDENT ([facility]) Amoxicillin 875 MG / Clavulanate 125 MG Oral Tablet Am oxicillin/Clavulanate Potassium 03/26/2020 12:00:00 AM EDT ORAL active MEDENT ([facility]) 50 mg 03/06/2020 12:00:00 AM EDT tablet 30 TAKE ONE TABLET BY MOUTH EVERY DAY TAKE ONE TABLET BY MOUTH EVERY DAY SOLD: 03/06/2020 [facility] tizanidine 4 MG Oral Tablet Tizanidine HCL 12/28/2019 12:00:00 AM EST completed MEDENT ([facility]) 4 mg 12/28/2019 12:00:00 AM EST tablet 14 TAKE ONE TABLET BY MOUTH EVERY EVENING NEEDED FOR MUSCLE SPASMS TAKE ONE TABLET BY MOUTH EVERY EVENING A S NEEDED FOR MUSCLE SPASMS SOLD: 12/28/2019 [facility] Insurance Providers Payer name Policy type / Coverage type Policy ID Covered constitution party ID Covered constitution party's relationship to aguayo Policy Aguayo Plan Information [facility] [id number] [facility] [id number] [id number] SP [id number] MEDICAID M [id number] S [id number] MEDICAID [id number] SP [id number] SELF PAY ONLY [id number] SP [id number] [facility] [id number] SP [id number] [facility]-Med[facility] [id number] ANSI-Commercial [id number] ANSI-Commercial [id number] ANSI-Medicaid [id number] ANSI-Commercial [id number] ANSI-Medicaid [id number] [facility] [id number] SP [id number] ANSI-Commercial [id number] ANSI-Medicaid [id number] ANSI-Medicaid [id number] ANSI-Commercial [id number] ANSI-Commercial [id number] ANSI-Medicaid [id number] ANSI-Commercial [id number] ANSI-Medicaid [id number] [facility] O [id number] S [id number] [employer] COMMUNITY PLAN MCDO [id number] SP [id number] [facility] Communty Plan Medicaid [id number] Self [id number] [facility] COMMUNTY PLAN [id number] 18 [id number] UNHC COMMUNITY PLAN XIX [id number] 18 [id number] UNHC COMMUNITY PLAN XIX ETRET 18 ETRET UNHC COMMUNITY PLAN MCDO [id number] SP [id number] PROGRESSIVE CO NO FAULT [id number] SP [id number] PROGRESSIVE CO NO FAULT [id number] SP [id number] ALEXANDER [id number] SP [id number] [place] [id number] S [id number] MEDICAID M [id number] Self [id number] [place] [id number] 18 [id number] MEDICAID [id number] SP [id number] EXCELLUS BCBS B [id number] S [id number] EXCELLUS I [id number] Self [id number] SELF PAY UNAVAILABLE SP UNAVAILA BLE BLUE CROSS COPE PLAN [id number] SP [id number] MEDICAID W [id number] S [id number] BLUE CHOICE OPTION O [id number] S [id number] Problems, Conditions, and Diagnoses Code Display Name Description Problem Type Effective Dates Data Source(s) F33.2 90390699 Major depressive dis order, recurrent severe without psychotic features Problem 03/20/2020 12:00:00 AM EDT eCW1 ([facility]) F41.1 91706940 Generalized anxiety disorder Problem 020 12:00:00 AM EDT eCW1 ([facility]) F33.2 50114641 Major depressive dis order, recurrent severe without psychotic features Problem 03/20/2020 12:00:00 AM EDT eCW1 ([facility]) F41.1 33786382 Generalized anxiety disorder Problem 020 12:00:00 AM EDT eCW1 ([facility]) F32.9 198796190 Major depressive dis order, remission status unspecified, unspecified whether recurrent Problem 03/06/2020 12:00:00 AM EDT eCW 1 ([facility]) F32.9 [id number] Major depressive dis order, remission status unspecified, unspecified whether recurrent Problem 03/06/2020 12:00:00 AM EDT eCW 1 ([facility]) Surgeries/Procedures Procedure Description Date Indications Data Source(s) RADEX FOOT COMPLETE MINIMUM 3 VIEWS 10/14/2020 12:00:0 0 AM EST MED[facility] ([facility] PSYCH DIAGNOSTIC EVALUATION 03/20/2020 12:00:00 AM EDT eCW1 ([facility]) Therapeutic, Prophylactic Or Diagnostic Injection Subq/Im 12/28/2019 12:00:00 AM EST MEDENT ([facility] Results ID Date Data Source [id number] 05/10/2020 05:55:00 PM EDT [facility] Name Value Range Interpretation Code Description Data Rosa rce(s) Supporting Document(s) SARS coronavirus 2 RNA [facility] This lab was ordered by [facility] and reported by [facility]. Procedure Social History Code Duration Value Status Description Data Source(s ) Smoking 03/21/2020 12:00:00 AM EDT Current Smoker completed Curre nt Smoker eCW1 ([facility]) Smoking 03/21/2020 12:00:00 AM EDT Current Smoker completed Curre nt Smoker eCW1 ([facility]) Smoking 03/21/2020 12:00:00 AM EDT Current Smoker completed Curre nt Smoker eCW1 ([facility]) Smoking 03/21/2020 12:00:00 AM EDT Current Smoker completed Curre nt Smoker eCW1 ([facility]) Smoking 03/21/2020 12:00:00 AM EDT Current Smoker completed Curre nt Smoker eCW1 ([facility]) Smoking 03/21/2020 12:00:00 AM EDT Current Smoker completed Curre nt Smoker eCW1 ([facility]) Vital Signs ID Date Data Source UNK Name Value Range Interpretation Code Description Data Source(s) Body mass index (BMI) [Ratio] 21.9 kg/m2 21.9 k g/m2 MEDENT [facility] Heart rate 63 /min 63 /min MEDENT ([facility] Diastolic blood pressure 58 mm[Hg] 58 mm[Hg] MEDENT ([facility] Systolic blood pressure 92 mm[Hg] 92 mm[Hg] M EDENT ([facility] Body weight 116.00 [lb_av] 116.00 [lb_av] MEDEN T ([facility] Body height 61 [in_i] 61 [in_i] MED[facility] 5'1" Body mass index (BMI) [Ratio] 22.3 kg/m2 22.3 k g/m2 MEDENT ([facility]) Body height 61 [in_i] 61 [in_i] MEDENT ([facility]) 5'1" Body weight 118.00 [lb_av] 118.00 [lb_av] MEDEN T ([facility], [facility]) Body temperature 98.6 [degF] 98.6 [degF] MEDENT ([facility], [facility]) Oxygen saturation in Arterial blood by Pulse oximetry 98 % 98 % MEDENT ([facility], [facility]) Respiratory rate 17 /min 17 /min MEDENT ( [facility], [facility]) Heart rate 77 /min 77 /min MEDENT ([facility], [facility]) Diastolic blood pressure 79 mm[Hg] 79 mm[Hg] MEDENT ([facility]) Systolic blood pressure 125 mm[Hg] 125 mm[Hg] M EDENT ([facility], [facility]) Diastolic blood pressure 67 mm[Hg] 67 mm[Hg] eCW1 ([facility]) Systolic blood pressure 93 mm[Hg] 93 mm[Hg] e CW1 ([facility]) Body temperature 98.4 [degF] 98.4 [degF] eCW1 ( [facility]) Respiratory rate 18 /min 18 /min eCW1 ([facility]) Heart rate 88 /min 88 /min eCW1 ([facility]) Body mass index (BMI) [Ratio] 22.29 kg/m2 22.29 kg/m2 W1 ([facility]) Body height 61 [in_i] 61 [in_i] eCW1 ([facility]) Body weight 118 [lb_av] 118 [lb_av] eCW1 ([facility]) Diastolic blood pressure 78 mm[Hg] 78 mm[Hg] eCW1 ([facility]) Systolic blood pressure 130 mm[Hg] 130 mm[Hg] e CW1 ([facility]) Body temperature 98.6 [degF] 98.6 [degF] eCW1 ( [facility]) Respiratory rate 18 /min 18 /min eCW1 ([facility]) Heart rate 95 /min 95 /min eCW1 ([facility]) Body mass index (BMI) [Ratio] 23.05 kg/m2 23.05 kg/m2 eCW1 ([facility]) Body height 61 [in_us] 61 [in_us] eCW1 ([facility]) Body weight Measured 122 [lb_av] 122 [lb_av] eC W1 ([facility]) Body mass index (BMI) [Ratio] 23.6 kg/m2 23.6 k g/m2 MEDENT ([facility], [facility]) Body height 61 [in_i] 61 [in_i] MEDENT ([facility]) 5'1" Body weight 125.00 [lb_av] 125.00 [lb_av] MEDEN T ([facility], [facility]) Body temperature 98.9 [degF] 98.9 [degF] MEDENT ([facility]) Oxygen saturation in Arterial blood by Pulse oximetry 98 % 98 % MEDENT ([facility]) Respiratory rate 14 /min 14 /min MEDENT ( [facility]) Heart rate 93 /min 93 /min MEDENT ([facility]) Diastolic blood pressure 79 mm[Hg] 79 mm[Hg] MEDENT ([facility]) Systolic blood pressure 128 mm[Hg] 128 mm[Hg] M EDENT ([facility]) Patient Treatment Plan of Care Planned Activity Planned Date Details Description Data Source (s) Sertraline 100 MG Oral Tablet 03/28/2020 12:00:00 AM EDT eCW1 ([facility]) Sertraline 100 MG Oral Tablet 03/28/2020 12:00:00 AM EDT eCW1 ([facility]) Sertraline 100 MG Oral Tablet 03/28/2020 12:00:00 AM EDT eCW1 ([facility]) Sertraline 100 MG Oral Tablet 03/28/2020 12:00:00 AM EDT eCW1 ([facility]) Sertraline 100 MG Oral Tablet 03/28/2020 12:00:00 AM EDT eCW1 ([facility]) Sertraline 100 MG Oral Tablet 03/28/2020 12:00:00 AM EDT eCW1 ([facility])
[2020-11-10] MEDS ORDERED: NS 1,000 ML IV ONE (10:30)
[2020-11-10] MEDS ORDERED: KETOROLAC 30 MG/ML 1ML VIAL IV ONE (10:30)
[2020-11-10] MEDS ORDERED: ONDANSETRON 4MG/2ML VIAL IV ONE (10:30)
[2020-11-10 10:49] LABS: BASO % 0.6 % (0.0-1.0); EOS # 0.2 10^3/uL (0.0-0.5); HEMATOCRIT 36.6 % (36.0-47.0); HEMOGLOBIN 12.7 g/dl (12.0-15.5); LYMPH # 1.6 10^3/uL (1.5-5.0); MEAN CORPUSCULAR HEMOGLOBIN 31.1 pg (27.0-33.0); MEAN CORPUSCULAR HGB CONC 34.7 g/dl (32.0-36.5); MEAN CORPUSCULAR VOLUME 89.7 fl (80.0-96.0); MONO # 0.6 10^3/uL (0.0-0.8); MONO % 8.2 % (0.0-5.0); NEUTROPHILS # 4.6 10^3/uL (1.5-8.5); NEUTROPHILS % 64.9 % (36.0-66.0); PLATELET COUNT, AUTOMATED 299 10^3/uL (150-450); RED BLOOD COUNT 4.08 10^6/uL (4.00-5.40); WHITE BLOOD COUNT 7.1 10^3/uL (4.0-10.0)
--- OUTSIDE RECORDS SUMMARY | 2020-11-10 10:57 | CCD ---
Author Author [facility] Organization [facility] Address Unknown Phone Unavailable Care Team Providers Care Webfocus Developer Name Role Phone Moe MOODY DPM Unavailable [...] GUGA, SAMUEL PA Unavailable Unavailable Jade, Doreen CARPENTER AND JOINER Unavailable Unavailable Jade, Doreen CARPENTER AND JOINER Unavailable Unavailable Jade, Doreen CARPENTER AND JOINER Unavailable Unavailable Jade, Doreen CARPENTER AND JOINER Unavailable Unavailable Jade, Doreen CARPENTER AND JOINER Unavailable Unavailable Jade, Doreen CARPENTER AND JOINER Unavailable Unavailable Jade, Doreen CARPENTER AND JOINER Unavailable Unavailable Jade, Doreen CARPENTER AND JOINER Unavailable Unavailable Jade, Doreen CARPENTER AND JOINER Unavailable Unavailable Jade, Doreen CARPENTER AND JOINER Unavailable Unavailable Jade, Doreen CARPENTER AND JOINER Unavailable Unavailable Re-disclosure Warning The records that [...] is protected by Article 27-F of the [facility] Public Health law. If you continue you may have access to information: Regarding HIV / AIDS; Provided by facilities licensed or operated by the [facility] Office of Mental Health; or Provided by the [facility] Office for People With Developmental Disabilities. If such information is present, then the following [facility] mandated warning applies: This information has [...] law may result in a fine or alf sentence or both. A general authorization for the release of medical or other information is NOT sufficient authorization for further disc losure. Allergies and Adverse Reactions Type Description Substance Reaction Status Data Source(s ) Drug allergy Percocet acetaminophen / oxycodone Severe headache Ac tive eCW1 ([facility]) Vicodin Vicodin Vicodin Nausea/Vomiting Active eCW1 ([facility]) Family History Family Member Name Family Member Gender Family Member Status Date o f Status Description Data Source(s) Unknown Male Problem MEDENT ([facility]) Encounters Encounter Providers Location Date Indications Data Source(s ) Outpatient Attender: NELDA MOODY [facility] Office 09/25 01:15:00 PM EST MEDENT ([facility] Unknown [address] [facility] [id number] 05/13/2020 12:00:00 AM EDT eCW1 ([facility]) Unknown [address] [facility] [id number] 05/06/2020 12:00:00 AM EDT eCW1 ([facility]) Unknown [address] [facility] [id number] 04/15/2020 12:00:00 AM EDT eCW1 ([facility]) ([facility]) [facility] Scheduled Visit [address] [place] [phone] 04/12/2020 12:00:00 AM EDT eCW1 ([facility]) [facility] [address] [place] [id number] 04/03/2020 12:00:00 AM EDT eCW1 ([facility]) Unknown [address] [facility] [id number] 03/28/2020 12:00:00 AM EDT [facility]CW1 [facility]) Outpatient Attender: Doreen burt 03/26/2020 04:45:00 PM EDT MEDENT ([facility] Outpatient [address] [facility] [id number] 03/21/2020 12:00:00 AM EDT eCW1 ([facility]) [facility] [address] [place] [phone] 03/20/2020 12:00:00 AM EDT eCW[facility]) [facility] [address] [facility] [address] 03/06/2020 12:00:00 AM EDT eCW1 ([facility]) Outpatient Attender: Manisha quintero 12/28/2019 03:40:00 PM EST MEDENT [facility] Outpatient Referrer: SAMUEL HYMAN 11/29/2019 02:17:00 PM EST [facility] [address] [facility] [address] 11/15/2019 12:00:00 AM EST eCW1 ([facility]) [facility] [address] [facility] [address] 11/06/2019 12:00:00 AM EST eCW1 ([facility]) Medications Medication Brand Name Start Date Product [...] Naproxen 10/14/2020 12:00:00 AM EST active MEDENT ([facility] 100 mg 03/28/2020 12:00:00 AM EDT [...] {tablet} active Sertraline HCl 100 MG eCW1 ([facility]) Sertraline 100 MG Oral Tablet Sertraline HCl 100 MG Sertrali ne HCl 100 MG 03/28/2020 12:00:00 AM EDT 1.0 {tablet} active Sertraline HCl 100 MG eCW1 ([facility]) Sertraline 100 MG Oral Tablet Sertraline HCl 100 MG Sertrali ne HCl 100 MG 03/28/2020 12:00:00 AM EDT 1.0 {tablet} active Sertraline HCl 100 MG eCW1 ([facility]) Sertraline 100 MG Oral Tablet Sertraline HCl 100 MG Sertrali ne HCl 100 MG 03/28/2020 12:00:00 AM EDT 1.0 {tablet} active Sertraline HCl 100 MG eCW1 ([facility]) Sertraline 100 MG Oral Tablet Sertraline HCl 100 MG Sertrali ne HCl 100 MG 03/28/2020 12:00:00 AM EDT 1.0 {tablet} active Sertraline HCl 100 MG eCW1 ([facility]) Sertraline 100 MG Oral Tablet Sertraline HCl 100 MG Sertrali ne HCl 100 MG 03/28/2020 12:00:00 AM EDT 1.0 {tablet} active Sertraline HCl 100 MG eCW1 ([facility]) 1 gram 03/26/2020 12:00:00 AM EDT tablet 30 TAKE ONE TABLET BY MOUTH THREE TIMES A DAY FOR 10 DAYS TAKE ONE TABLET BY MOUTH THREE TIMES A DAY FOR 10 DAYS SOLD: 03/27/2020 [facility] 875-125 mg 03/26/2020 12:00:00 AM EDT tablet 20 TAKE ONE TABLET BY MOUTH TWICE A DAY FOR 10 DAYS TAKE ONE TABLET BY MOUTH TWICE A DAY FOR 10 DAYS SOLD: 03/27/2020 [facility] valacyclovir 1000 MG Oral Tablet Valacyclovir HCL 03/26/2020 12:00: 00 AM EDT active MEDENT ([facility], [facility]) Amoxicillin 875 MG / Clavulanate 125 MG Oral Tablet Am oxicillin/Clavulanate Potassium 03/26/2020 12:00:00 AM EDT ORAL active MEDENT ([facility], [facility]) 50 mg 03/06/2020 12:00:00 AM EDT tablet 30 TAKE ONE TABLET BY MOUTH EVERY DAY TAKE ONE TABLET BY MOUTH EVERY DAY SOLD: 03/06/2020 [facility] tizanidine 4 MG Oral Tablet Tizanidine HCL 12/28/2019 12:00:00 AM EST completed MEDENT ([facility], [facility]) 4 mg 12/28/2019 12:00:00 AM EST tablet 14 TAKE ONE TABLET BY MOUTH EVERY EVENING NEEDED FOR MUSCLE SPASMS TAKE ONE TABLET BY MOUTH EVERY EVENING A S NEEDED FOR MUSCLE SPASMS SOLD: 12/28/2019 [facility] Insurance Providers Payer name Policy type / Coverage type Policy ID Covered green party ID Covered green party's relationship to aguayo Policy Aguayo Plan Information [facility] [id number] [facility] [id number] EMEDNY [id number] SP [id number] MEDICAID M [id number] MEDICAID [id number] SP [id number] SELF PAY ONLY [id number] SP [id number] [facility] CARE [id number] SP [id number] [facility]-Medicaid [id number] ANSI-Commercial [id number] ANSI-Commercial [id number] ANSI-Medicaid [id number] ANSI-Commercial [id number] ANSI-Medicaid [id number] [facility] [id number] SP [id number] ANSI-Commercial [id number] ANSI-Medicaid [id number] ANSI-Medicaid [id number] ANSI-Commercial [id number] ANSI-Commercial [id number] ANSI-Medicaid [id number] ANSI-Commercial [id number] ANSI-Medicaid [id number] [facility] O [id number] S [id number] [employer] COMMUNITY PLAN MCDO [id number] SP [id number] [facility] Communty Plan Medicaid [id number] Self [id number] [facility] COMMUNTY PLAN [place] [id number] [employer] COMMUNITY PLAN XIX [id number] 18 [id number] [employer] COMMUNITY PLAN XIX ETRET 18 ETRET [employer]HC COMMUNITY PLAN [id number] SP [id number] PROGRESSIVE CO NO FAULT [id number] SP [id number] PROGRESSIVE CO NO FAULT [id number] SP [id number] ALEXANDER [id number] SP [id number] [place] [id number] S [id number] MEDICAID M [id number] Self [id number] [place] [id number] 18 [id number] MEDICAID [id number] SP [id number] EXCELLUS BCBS B [id number] S [id number] EXCELLUS I [id number] Self [id number] SELF PAY UNAVAILABLE SP UNAVAILA BLE BLUE CROSS COPE PLAN [id number] SP [id number] MEDICAID [id number] S [id number] BLUE CHOICE OPTION O [id number] S [id number] Problems, Conditions, and Diagnoses Code Display Name Description Problem Type Effective Dates Data Source(s) F33.2 85963923 Major depressive dis order, recurrent severe without psychotic features Problem 03/20/2020 12:00:00 AM EDT eCW1 ([facility]) F41.1 [id number] Generalized anxiety disorder Problem 020 12:00:00 AM EDT eCW1 ([facility]) F33.2 32729853 Major depressive dis order, recurrent severe without psychotic features Problem 03/20/2020 12:00:00 AM EDT eCW1 ([facility]) F41.1 [id number] Generalized anxiety disorder Problem 020 12:00:00 AM EDT eCW1 ([facility]) F32.9 [id number] Major depressive dis order, remission status unspecified, unspecified whether recurrent Problem 03/06/2020 12:00:00 AM EDT eCW 1 ([facility]) F32.9 [id number] Major depressive dis order, remission status unspecified, unspecified whether recurrent Problem 03/06/2020 12:00:00 AM EDT eCW 1 ([facility]) Surgeries/Procedures Procedure Description Date Indications Data Source(s) RADEX FOOT COMPLETE MINIMUM 3 VIEWS 10/14/2020 12:00:0 0 AM EST MEDENT ([facility] PSYCH DIAGNOSTIC EVALUATION 03/20/2020 12:00:00 AM EDT eCW1 ([facility]) Therapeutic, Prophylactic Or Diagnostic Injection Subq/Im 12/28/2019 12:00:00 AM EST MEDENT ([facility]) Results ID Date Data Source [id number] 05/10/2020 05:55:00 PM EDT [facility] Name Value Range Interpretation Code Description Data Rosa rce(s) Supporting Document(s) SARS coronavirus 2 RNA [facility] This lab was ordered by [facility] and reported by [facility]. Procedure Social History Code Duration Value Status Description Data Source(s ) Smoking 03/21/2020 12:00:00 AM EDT Current Smoker completed Curre nt Smoker eCW1 ([facility]) Smoking 03/21/2020 12:00:00 AM EDT Current Smoker completed Curre nt Smoker eCW1 ([facility]) Smoking 03/21/2020 12:00:00 AM EDT Current Smoker completed Curre nt Smoker eCW1 ([facility]) Smoking 03/21/2020 12:00:00 AM EDT Current Smoker completed Curre nt Smoker eCW1 ([facility]) Smoking 03/21/2020 12:00:00 AM EDT Current Smoker completed Curre nt Smoker eCW1 ([facility]) Smoking 03/21/2020 12:00:00 AM EDT Current Smoker completed Curre nt Smoker eCW1 ([facility]) Vital Signs ID Date Data Source UNK Name Value Range Interpretation Code Description Data Source(s) Body mass index (BMI) [Ratio] 21.9 kg/m2 21.9 k g/m2 MEDENT ([facility] Heart rate 63 /min 63 /min MEDENT ([facility] Diastolic blood pressure 58 mm[Hg] 58 mm[Hg] MEDENT ([facility] Systolic blood pressure 92 mm[Hg] 92 mm[Hg] M EDENT ([facility] Body weight 116.00 [lb_av] 116.00 [lb_av] MEDEN T ([facility] Body height 61 [in_i] 61 [in_i] MEDENT ([facility] 5'1" Body mass index (BMI) [Ratio] 22.3 kg/m2 22.3 k g/m2 MEDENT ([facility], [facility]) Body height 61 [in_i] 61 [in_i] MEDENT ([facility], [facility]) 5'1" Body weight 118.00 [lb_av] 118.00 [lb_av] MEDEN T ([facility], [facility]) Body temperature 98.6 [degF] 98.6 [degF] MEDENT ([facility], [facility]) Oxygen saturation in Arterial blood by Pulse oximetry 98 % 98 % MEDENT ([facility], [facility]) Respiratory rate 17 /min 17 /min MEDENT ( [facility], [facility]) Heart rate 77 /min 77 /min MEDENT ([facility], [facility]) Diastolic blood pressure 79 mm[Hg] 79 mm[Hg] MEDENT ([facility], [facility]) Systolic blood pressure 125 mm[Hg] 125 mm[Hg] M EDENT ([facility], [facility]) Diastolic blood pressure 67 mm[Hg] 67 mm[Hg] eCW1 ([facility]) Systolic blood pressure 93 mm[Hg] 93 mm[Hg] e CW1 ([facility]) Body temperature 98.4 [degF] 98.4 [degF] eCW1 ( [facility]) Respiratory rate 18 /min 18 /min eCW1 ([facility]) Heart rate 88 /min 88 /min eCW1 ([facility]) Body mass index (BMI) [Ratio] 22.29 kg/m2 22.29 kg/m2 W1 ([facility]) Body height 61 [in_i] 61 [in_i] eCW1 ([facility]) Body weight 118 [lb_av] 118 [lb_av] eCW1 ([facility]) Diastolic blood pressure 78 mm[Hg] 78 mm[Hg] eCW1 ([facility]) Systolic blood pressure 130 mm[Hg] 130 mm[Hg] e CW1 ([facility]) Body temperature 98.6 [degF] 98.6 [degF] eCW1 ( [facility]) Respiratory rate 18 /min 18 /min eCW1 ([facility]) Heart rate 95 /min 95 /min eCW1 ([facility]) Body mass index (BMI) [Ratio] 23.05 kg/m2 23.05 kg/m2 eCW1 ([facility]) Body height 61 [in_us] 61 [in_us] eCW1 ([facility]) Body weight Measured 122 [lb_av] 122 [lb_av] eC W1 ([facility]) Body mass index (BMI) [Ratio] 23.6 kg/m2 23.6 k g/m2 MEDENT ([facility], [facility]) Body height 61 [in_i] 61 [in_i] MEDENT ([facility]) 5'1" Body weight 125.00 [lb_av] 125.00 [lb_av] MEDEN T ([facility], [facility]) Body temperature 98.9 [degF] 98.9 [degF] MEDENT ([facility], [facility]) Oxygen saturation in Arterial blood by Pulse oximetry 98 % 98 % MEDENT ([facility], [facility]) Respiratory rate 14 /min 14 /min MEDENT ( [facility], [facility]) Heart rate 93 /min 93 /min MEDENT ([facility], [facility]) Diastolic blood pressure 79 mm[Hg] 79 mm[Hg] MEDENT ([facility], [facility]) Systolic blood pressure 128 mm[Hg] 128 mm[Hg] M EDENT ([facility], [facility]) Patient Treatment Plan of Care Planned Activity Planned Date Details Description Data Source (s) Sertraline 100 MG Oral Tablet 03/28/2020 12:00:00 AM EDT eCW1 ([facility]) Sertraline 100 MG Oral Tablet 03/28/2020 12:00:00 AM EDT eCW1 ([facility]) Sertraline 100 MG Oral Tablet 03/28/2020 12:00:00 AM EDT eCW1 ([facility]) Sertraline 100 MG Oral Tablet 03/28/2020 12:00:00 AM EDT eCW1 ([facility]) Sertraline 100 MG Oral Tablet 03/28/2020 12:00:00 AM EDT eCW1 ([facility]) Sertraline 100 MG Oral Tablet 03/28/2020 12:00:00 AM EDT eCW1 ([facility])
[2020-11-10] MEDS ORDERED: MORPHINE 2 MG/ML 1ML VIAL (J2270) IV ONE (11:30)
--- NOTE | 2020-11-10 12:08 | REP ---
INDICATION: left flank/LLQ pain, prev hx of ureteral calc, eval for same COMPARISON: 05/23/2016. TECHNIQUE: CT Scan of the abdomen and pelvis was performed without intravenous contrast. Sagittal and coronal reconstruction images performed. FINDINGS: Lung bases: Unremarkable. Liver: Liver is enlarged, measuring approximately 19.5 cm in length. Gallbladder: Unremarkable. Spleen: Grossly unremarkable.. Adrenals: Normal. Pancreas: Grossly unremarkable.. Kidneys: Two adjacent stones are seen in the upper pole the right kidney, the larger 5 mm in diameter. Two 5 mm stones are seen in the mid right kidney. A 3 mm calcification is seen in the right lower pole. A 5 mm calcification is seen in the left upper pole. There is a 3 mm calcification in the mid left kidney. There is moderate left hydroureteronephrosis. This is caused by 6 mm calculus at the left ureterovesical junction. Small and large bowel: Grossly unremarkable.. Free fluid: None. Abdominal aorta: No aneurysm. Adenopathy: None. Appendix: Not inflamed. Osseous structures: There are degenerative changes of the spine without compression deformity. Pelvis: No mass. No bladder calculus seen. IMPRESSION: There is a 6 mm calculus at the left ureterovesical junction causing moderate left hydroureteronephrosis. There are multiple bilateral intrarenal calculi. Hepatomegaly. <Electronically signed by Vamsi Rehman > 11/10/20 [id number]
[2020-11-10 12:50] VITALS: BP 105/67
[2020-11-10] MEDS ORDERED: ONDA4TAB6 PO (12:52)
[2020-11-10] MEDS ORDERED: OXYC1TAB23 PO (12:52)
[2020-11-10] MEDS ORDERED: FLOM0.4C39 PO (12:52)
[2020-11-10] MEDS ORDERED: KETO10TAB PO (12:52)
[2020-11-10] MEDS ORDERED: CEPH500C PO (12:56)
[2020-11-10] MEDS ORDERED: PERC5TAB12 PO (13:01)
== END 2020-11-10 13:02 | disposition home or self-care (01) ==
LOC: M ED 10:12
DX: N13.2 Hydronephrosis with renal and ureteral calculous obstruction (principal); N39.0 Urinary tract infection, site not specified; R31.9 Hematuria, unspecified; Z79.899 Other long term (current) drug therapy
CPT/HCPCS: 74176; 80047; 81001; 83605; 84702; 85025; 96361; 96374; 96375; 99284; J1885; J2270; J2405

== ENCOUNTER → 2021-04-01 | Outpatient (CLI) | payer OTHER ==
[~2021-04-01] MED LIST changes: +CEPH500C PO; +FLOM0.4C39 PO; +KETO10TAB PO; +ONDA4TAB6 PO; +OXYC1TAB23 PO; +PERC5TAB12 PO
--- NOTE | 2021-04-01 14:56 | REP ---
INDICATION: RIGHT HAND MASS - LUCINA US COMPARISON: None. TECHNIQUE: AP, lateral, bilateral oblique views right hand. FINDINGS: Subchondral cystic, periarticular sclerosis and small erosive changes are identified involving the osseous structures at the 4th metacarpophalangeal joint. The remainder of the hand appears normal. Findings are nonspecific and may reflect an old or chronic inflammatory process. No periarticular calcifications are identified and no obvious fracture is appreciated. IMPRESSION: Focal changes at the 4th metacarpophalangeal joint as described above. Findings are nonspecific and should be correlated with physical examination and history.. No acute fracture or dislocation. <Electronically signed by Berto Diane > 04/01/21 [id number]
--- NOTE | 2021-04-02 05:52 | REP ---
INDICATION: MASS ON LEFT FOREARM - XR AFTER COMPARISON: None TECHNIQUE: Realtime B-mode grayscale and color ultrasound examination using linear high-frequency transducer. FINDINGS: Directed ultrasound examination along the proximal aspect of the left forearm was performed. Posterior to the elbow are 3 distinct hypoechoic essentially avascular subcutaneous lesions measuring 1.0 x 1.0 x 0.4 cm, 1.0 x 2.3 x 0.7 cm, and 0.6 x 1.2 x 0.5 cm. These findings are nonspecific by ultrasound examination. IMPRESSION: 1. Nonspecific hypoechoic lesions in the subcutaneous tissue. Findings cannot be further characterized by ultrasound. Clinical/physical correlation is required. Consider MRI examination if further imaging is necessary. <Electronically signed by Berto Diane > 04/02/21 [id number]
== END ==
LOC: M RAD 13:49
PROVIDERS: ATTEND Nurse Practitioner Family
DX: R22.33 Localized swelling, mass and lump, upper limb, bilateral (principal)

== ENCOUNTER → 2021-04-23 | Outpatient (CLI) | payer OTHER ==
[~2021-04-23] MED LIST changes: -DOXY100C37 PO; +DOXY1CAP62 PO
--- NOTE | 2021-04-23 18:56 | REP ---
INDICATION: LT UPPER EXT MASS. COMPARISON: None TECHNIQUE: 3T multiplanar MRI imaging of the left forearm was obtained using various sequences. The technologist has placed soft tissue markers on the skin surrounding the area of interest. FINDINGS: Soft tissue markers are seen surrounding a 2.5 x 0.8 x 2.9 cm size area of mixed T1 and T2 signal. This is at the level of the proximal ulna distal to the elbow joint and confined to the subcutanea. There is no osseous or underlying muscular involvement. There is no elbow joint effusion. IMPRESSION: Mixed signal soft tissue mass, as described above, suggestive of a chronic infectious etiology. Certainly, an actual soft tissue mass can not be ruled out. <Electronically signed by Srikanth Ellison > 04/23/21 [id number]
== END ==
LOC: M RAD 16:48
PROVIDERS: ATTEND Nurse Practitioner Family
DX: R22.32 Localized swelling, mass and lump, left upper limb (principal)

== ENCOUNTER → 2021-05-15 | Outpatient (REF) | payer OTHER | LOC: M LAB REF 18:38 | PROVIDERS: ATTEND Surgery | DX: D48.5 Neoplasm of uncertain behavior of skin (principal) ==

== ENCOUNTER 2021-05-25 10:14 | Emergency (ER) | payer OTHER ==
[~2021-05-25] VITALS: Ht 154.9 cm; Wt 53.6 kg
[2021-05-25 10:15] VITALS: BP 122/72
== END 2021-05-25 12:16 | disposition left against medical advice (07) ==
LOC: M ED 10:14
DX: Z53.21 Procedure and treatment not carried out due to patient leaving prior to being seen by health care provider (principal)

== ENCOUNTER → 2021-06-04 | Outpatient (CLI) | payer OTHER ==
[~2021-06-04] MED LIST changes: +PROHANCE 279.3MG/ML 15ML VIAL ONE
--- NOTE | 2021-06-04 11:13 | REP ---
INDICATION: NEOPLASM OF UNSP BEHAVIOR OF BONE, SOFT TISSUE. COMPARISON: No comparison ankle imaging. Comparison is made with recent images of the left forearm and right hand.. TECHNIQUE: Axial, coronal, and sagittal imaging planes utilized. T1 and T2 weighted scans are obtained with and without fat saturation. The gadolinium enhancement dose is 10 mL of intravenous ProHance. Post gadolinium enhanced images are included in all 3 planes. FINDINGS: There is evidence of an advanced arthropathy involving moderate to marked synovial hypertrophy at the tibiotalar articulation, the subtalar articulation, and several of the intertarsal articulations in the midfoot. There is a cortical erosion in the cuboid bone and enhancing synovial hypertrophy is seen in these locations. The Lisfranc articulation is involved to some degree but the ankle and subtalar joint are the most heavily involved. There is involvement of the tendon sheath with fluid and tendon sheath thickening surrounding the tibialis posterior tendon and to a lesser extent, the flexor digitorum and flexor hallucis longus tendons. There is mild edema and thickening at the insertion of the plantar fascia on the posterior calcaneus consistent with plantar fasciitis. There is a small cyst noted incidentally in the calcaneus. The Achilles tendon is intact. Study is otherwise unremarkable. There is no evidence to suggest neoplastic mass. I note that there are new erosive changes at the right 4th metacarpal phalangeal joint on recent radiographs. There is soft tissue fullness noted in the region of the olecranon bursa on ultrasound imaging from April 01, 2021. IMPRESSION: Findings consistent with advanced inflammatory arthropathy such is gout or other inflammatory arthritis. The tibiotalar and subtalar joints are the most heavily involved but there is midfoot arthropathy with synovial hypertrophy as well. Tendon sheath effusions are noted in the flexor tendons. There is evidence of some plantar fasciitis as well. Suggest rheumatologic evaluation. <Electronically signed by Shyam Robins > 06/04/21 [id number]
== END ==
LOC: M PLAIMG 09:22
PROVIDERS: ATTEND Podiatrist
DX: D49.2 Neoplasm of unspecified behavior of bone, soft tissue, and skin (principal); M85.472 Solitary bone cyst, left ankle and foot; R93.6 Abnormal findings on diagnostic imaging of limbs
CPT/HCPCS: 73723; A9576

== ENCOUNTER 2021-06-20 08:48 | Emergency (ER) | payer OTHER ==
[~2021-06-20] VITALS: Ht 157.5 cm; Wt 51.0 kg
[~2021-06-20 08:48] MED LIST changes: -PROHANCE 279.3MG/ML 15ML VIAL ONE
[2021-06-20 08:49] VITALS: BP 126/85
[2021-06-20] MEDS ORDERED: SERT50TA29 PO (09:02)
[2021-06-20] MEDS ORDERED: METH4PACK PO (09:02)
== END 2021-06-20 11:34 | disposition left against medical advice (07) ==
LOC: M ED 08:48
DX: Z53.21 Procedure and treatment not carried out due to patient leaving prior to being seen by health care provider (principal)

== ENCOUNTER → 2021-09-29 | Outpatient (CLI) | payer OTHER ==
[~2021-09-29] MED LIST changes: +DOXY-443 PO; -DOXY1CAP62 PO; +METH4PACK PO; +SERT50TA29 PO
--- NOTE | 2021-09-29 11:17 | REP ---
INDICATION: PAIN COMPARISON: None. TECHNIQUE: AP and lateral views left wrist. FINDINGS: There is no evidence for acute fracture or obvious healed injury. No significant osteoarthritic or inflammatory arthritic changes are appreciated. Joint spaces are relatively well maintained and age-appropriate. Surrounding soft tissues are unremarkable. No periarticular calcifications or loose bodies. No obvious erosive changes. No chondrocalcinosis. IMPRESSION: . No acute fracture or dislocation. <Electronically signed by Berto Diane > 09/29/21 [id number]
[2021-09-29 16:40] LABS: BASO # 0.1 10^3/uL (0.0-0.2); BASO % 0.7 % (0.0-1.0); EOS # 0.3 10^3/uL (0.0-0.5); EOS % 3.9 % (0.0-3.0); HEMATOCRIT 39.8 % (36.0-47.0); LYMPH # 1.7 10^3/uL (1.5-5.0); MEAN CORPUSCULAR HGB CONC 32.7 g/dl (32.0-36.5); MEAN CORPUSCULAR VOLUME 91.9 fl (80.0-96.0); MONO # 0.6 10^3/uL (0.0-0.8); MONO % 8.4 % (2.0-8.0); NEUTROPHILS # 4.3 10^3/uL (1.5-8.5); NEUTROPHILS % 62.6 % (36.0-66.0); PLATELET COUNT, AUTOMATED 327 10^3/uL (150-450); RED BLOOD COUNT 4.33 10^6/uL (4.00-5.40); WHITE BLOOD COUNT 6.9 10^3/uL (4.0-10.0)
[2021-09-29 17:13] LABS: ERYTHROCYTE SEDIMENTATION RATE 37 mm/hr (0-20)
[2021-09-29 17:25] LABS: ALBUMIN 3.8 GM/DL (3.2-5.2); ALT/SGPT 23 U/L (12-78); BILIRUBIN,TOTAL 0.3 MG/DL (0.2-1.0); BLOOD UREA NITROGEN 9 MG/DL (7-18); C REACTIVE PROTEIN QUANTITATIV 0.99 MG/DL (0.00-0.30); CALCIUM LEVEL 9.5 MG/DL (8.5-10.1); CARBON DIOXIDE LEVEL 28 MEQ/L (21-32); CHLORIDE LEVEL 105 MEQ/L (98-107); CREATININE FOR GFR 0.72 MG/DL (0.55-1.30); GLOMERULAR FILTRATION RATE > 60.0 (>60); GLUCOSE, FASTING 126 MG/DL (70-100); POTASSIUM SERUM 4.2 MEQ/L (3.5-5.1); SODIUM LEVEL 136 MEQ/L (136-145); TOTAL PROTEIN 7.6 GM/DL (6.4-8.2)
== END ==
LOC: M WUC 10:29
PROVIDERS: ATTEND Family Medicine
DX: M06.9 Rheumatoid arthritis, unspecified (principal); M25.532 Pain in left wrist

== ENCOUNTER → 2021-11-06 | Outpatient (REF) | payer OTHER ==
[2021-11-06 14:02] LABS: BASO % 0.3 % (0.0-1.0); EOS # 0.2 10^3/uL (0.0-0.5); EOS % 2.6 % (0.0-3.0); HEMATOCRIT 41.4 % (36.0-47.0); HEMOGLOBIN 14.2 g/dl (12.0-15.5); LYMPH # 1.8 10^3/uL (1.5-5.0); LYMPH % 20.2 % (24.0-44.0); MEAN CORPUSCULAR HEMOGLOBIN 30.9 pg (27.0-33.0); MEAN CORPUSCULAR HGB CONC 34.3 g/dl (32.0-36.5); MEAN CORPUSCULAR VOLUME 90.2 fl (80.0-96.0); MONO # 0.7 10^3/uL (0.0-0.8); MONO % 7.6 % (2.0-8.0); NEUTROPHILS # 6.2 10^3/uL (1.5-8.5); PLATELET COUNT, AUTOMATED 393 10^3/uL (150-450); RED BLOOD COUNT 4.59 10^6/uL (4.00-5.40)
[2021-11-06 14:04] LABS: APPEARANCE, URINE CLEAR (CLEAR); BACTERIA, URINE AUTO NEGATIVE (NEGATIVE); BILIRUBIN, URINE AUTO NEGATIVE (NEGATIVE); BLOOD, URINE BLOOD 1+ (NEGATIVE); COLOR, URINE YELLOW (YELLOW); GLUCOSE, URINE (UA) AUTO NEGATIVE (NEGATIVE); KETONE, URINE AUTO NEGATIVE (NEGATIVE); LEUKOCYTE ESTERASE, URINE AUTO NEGATIVE (NEGATIVE); MUCUS, URINE SMALL (NEGATIVE); NITRITE, URINE AUTO NEGATIVE (NEGATIVE); PROTEIN, URINE AUTO NEGATIVE (NEGATIVE); RBC, URINE AUTO 21 /HPF (0-3); SPECIFIC GRAVITY URINE AUTO 1.014 (1.002-1.035); SQUAMOUS EPITHELIAL CELL UR AU 1 /HPF (0-6); UROBILINOGEN, URINE AUTO 0.2 mg/dL (0.0-2.0); WBC, URINE AUTO 0 /HPF (0-3)
[2021-11-06 14:17] LABS: DRVV SCREEN 38.2 SEC
[2021-11-06 14:23] LABS: TOTAL PROTEIN,RANDOM URINE 13.3 MG/DL (0.0-12.0)
[2021-11-06 14:44] LABS: ALBUMIN 4.3 GM/DL (3.2-5.2); ALT/SGPT 23 U/L (12-78); BILIRUBIN,DIRECT 0.1 MG/DL (0.0-0.2); BILIRUBIN,TOTAL 0.3 MG/DL (0.2-1.0); BLOOD UREA NITROGEN 7 MG/DL (7-18); C REACTIVE PROTEIN QUANTITATIV 0.83 MG/DL (0.00-0.30); CALCIUM LEVEL 9.9 MG/DL (8.5-10.1); CARBON DIOXIDE LEVEL 25 MEQ/L (21-32); CHLORIDE LEVEL 105 MEQ/L (98-107); COMPLEMENT C3 118 MG/DL (90-180); COMPLEMENT C4 19 MG/DL (10-40); CREATININE FOR GFR 0.66 MG/DL (0.55-1.30); GLOMERULAR FILTRATION RATE > 60.0 (>60); GLUCOSE, FASTING 88 MG/DL (70-100); HEPATITIS B SURFACE ANTIBODY POSITIVE (POSITIVE); IMMUNOGLOBULIN G 1470 MG/DL (681-1648); IRON (FE) 73 UG/DL (50-170); PHOSPHORUS LEVEL 3.5 MG/DL (2.5-4.9); POTASSIUM SERUM 4.2 MEQ/L (3.5-5.1); SODIUM LEVEL 137 MEQ/L (136-145); TOTAL 25(OH) VITAMIN D 17.4 NG/ML (30.0-100.0); TOTAL PROTEIN 8.2 GM/DL (6.4-8.2); VITAMIN B12 LEVEL 682 PG/ML (247-911)
[2021-11-06 14:55] LABS: HEPATITIS B SURFACE ANTIGEN NEGATIVE (NEGATIVE)
[2021-11-06 15:09] LABS: ERYTHROCYTE SEDIMENTATION RATE 35 mm/hr (0-20)
[2021-11-06 15:23] LABS: HEPATITIS C VIRUS ABY INDEX < 0.0 INDEX (<0.8)
[2021-11-07 15:11] LABS: COMPLEMENT TOTAL (CH50) > 60 U/mL (>41); HEPATITIS B CORE ANTIBODY IGG Negative (Negative)
== END ==
LOC: M SFHCRHEU 10:15
PROVIDERS: ATTEND Internal Medicine
DX: R76.8 Other specified abnormal immunological findings in serum (principal); M79.10 Myalgia, unspecified site; M05.79 Rheumatoid arthritis with rheumatoid factor of multiple sites without organ or systems involvement

== ENCOUNTER → 2021-11-14 | Outpatient (CLI) | payer OTHER | LOC: M WUC 15:14 | PROVIDERS: ATTEND Internal Medicine | DX: M05.79 Rheumatoid arthritis with rheumatoid factor of multiple sites without organ or systems involvement (principal); R93.89 Abnormal findings on diagnostic imaging of other specified body structures ==

== ENCOUNTER → 2021-12-25 | Outpatient (CLI) | payer OTHER ==
[2021-12-25 15:48] LABS: BASO # 0.1 10^3/uL (0.0-0.2); BASO % 0.8 % (0.0-1.0); EOS # 0.2 10^3/uL (0.0-0.5); EOS % 3.5 % (0.0-3.0); HEMATOCRIT 38.4 % (36.0-47.0); HEMOGLOBIN 12.7 g/dl (12.0-15.5); LYMPH # 0.3 10^3/uL (1.5-5.0); LYMPH % 5.1 % (24.0-44.0); MEAN CORPUSCULAR HEMOGLOBIN 29.9 pg (27.0-33.0); MEAN CORPUSCULAR HGB CONC 33.1 g/dl (32.0-36.5); MEAN CORPUSCULAR VOLUME 90.4 fl (80.0-96.0); MONO # 0.6 10^3/uL (0.0-0.8); MONO % 10.5 % (2.0-8.0); NEUTROPHILS # 4.8 10^3/uL (1.5-8.5); NEUTROPHILS % 79.6 % (36.0-66.0); PLATELET COUNT, AUTOMATED 237 10^3/uL (150-450); RED BLOOD COUNT 4.25 10^6/uL (4.00-5.40); WHITE BLOOD COUNT 6.1 10^3/uL (4.0-10.0)
[2021-12-25 15:54] LABS: ALT/SGPT 22 U/L (12-78); BILIRUBIN,DIRECT < 0.1 MG/DL (0.0-0.2); BILIRUBIN,TOTAL 0.3 MG/DL (0.2-1.0); BLOOD UREA NITROGEN 12 MG/DL (7-18); C REACTIVE PROTEIN QUANTITATIV 0.71 MG/DL (0.00-0.30); CALCIUM LEVEL 9.2 MG/DL (8.5-10.1); CARBON DIOXIDE LEVEL 28 MEQ/L (21-32); CHLORIDE LEVEL 107 MEQ/L (98-107); CREATININE FOR GFR 0.64 MG/DL (0.55-1.30); GLOMERULAR FILTRATION RATE > 60.0 (>60); GLUCOSE, FASTING 79 MG/DL (70-100); POTASSIUM SERUM 4.2 MEQ/L (3.5-5.1); SODIUM LEVEL 140 MEQ/L (136-145); TOTAL PROTEIN 7.5 GM/DL (6.4-8.2)
[2021-12-25 17:42] LABS: ERYTHROCYTE SEDIMENTATION RATE 40 mm/hr (0-20)
== END ==
LOC: M WUC 11:23
PROVIDERS: ATTEND Internal Medicine
DX: M05.79 Rheumatoid arthritis with rheumatoid factor of multiple sites without organ or systems involvement (principal)

== ENCOUNTER → 2022-01-27 | Outpatient (CLI) | payer OTHER ==
[2022-01-27 16:11] LABS: BASO # 0.1 10^3/uL (0.0-0.2); BASO % 0.7 % (0.0-1.0); EOS # 0.4 10^3/uL (0.0-0.5); HEMATOCRIT 33.8 % (36.0-47.0); HEMOGLOBIN 11.4 g/dl (12.0-15.5); LYMPH # 1.6 10^3/uL (1.5-5.0); MEAN CORPUSCULAR HEMOGLOBIN 30.5 pg (27.0-33.0); MEAN CORPUSCULAR HGB CONC 33.7 g/dl (32.0-36.5); MEAN CORPUSCULAR VOLUME 90.4 fl (80.0-96.0); MONO # 0.7 10^3/uL (0.0-0.8); MONO % 10.4 % (2.0-8.0); NEUTROPHILS # 4.3 10^3/uL (1.5-8.5); NEUTROPHILS % 60.6 % (36.0-66.0); PLATELET COUNT, AUTOMATED 280 10^3/uL (150-450); RED BLOOD COUNT 3.74 10^6/uL (4.00-5.40)
[2022-01-27 16:34] LABS: ALBUMIN 3.9 GM/DL (3.2-5.2); ALT/SGPT 15 U/L (12-78); BILIRUBIN,DIRECT 0.1 MG/DL (0.0-0.2); BILIRUBIN,TOTAL 0.4 MG/DL (0.2-1.0); BLOOD UREA NITROGEN 11 MG/DL (7-18); C REACTIVE PROTEIN QUANTITATIV 0.77 MG/DL (0.00-0.30); CALCIUM LEVEL 8.7 MG/DL (8.5-10.1); CARBON DIOXIDE LEVEL 25 MEQ/L (21-32); CHLORIDE LEVEL 107 MEQ/L (98-107); CREATININE FOR GFR 0.71 MG/DL (0.55-1.30); GLOMERULAR FILTRATION RATE > 60.0 (>60); GLUCOSE, FASTING 94 MG/DL (70-100); POTASSIUM SERUM 3.6 MEQ/L (3.5-5.1); SODIUM LEVEL 137 MEQ/L (136-145)
[2022-01-27 16:49] LABS: ERYTHROCYTE SEDIMENTATION RATE 49 mm/hr (0-20)
== END ==
LOC: M WUC 13:03
PROVIDERS: ATTEND Internal Medicine
DX: M05.79 Rheumatoid arthritis with rheumatoid factor of multiple sites without organ or systems involvement (principal)

== ENCOUNTER → 2022-02-13 | Outpatient (CLI) | payer OTHER ==
[2022-02-13 16:17] LABS: BASO # 0.1 10^3/uL (0.0-0.2); BASO % 0.7 % (0.0-1.0); EOS # 0.3 10^3/uL (0.0-0.5); HEMATOCRIT 37.3 % (36.0-47.0); HEMOGLOBIN 12.3 g/dl (12.0-15.5); LYMPH # 1.8 10^3/uL (1.5-5.0); LYMPH % 26.7 % (24.0-44.0); MEAN CORPUSCULAR HEMOGLOBIN 30.4 pg (27.0-33.0); MEAN CORPUSCULAR VOLUME 92.1 fl (80.0-96.0); MONO # 0.6 10^3/uL (0.0-0.8); MONO % 8.9 % (2.0-8.0); NEUTROPHILS % 58.3 % (36.0-66.0); PLATELET COUNT, AUTOMATED 288 10^3/uL (150-450); RED BLOOD COUNT 4.05 10^6/uL (4.00-5.40); WHITE BLOOD COUNT 6.9 10^3/uL (4.0-10.0)
[2022-02-13 16:52] LABS: ALT/SGPT 16 U/L (12-78); BILIRUBIN,DIRECT 0.1 MG/DL (0.0-0.2); BILIRUBIN,TOTAL 0.3 MG/DL (0.2-1.0); BLOOD UREA NITROGEN 11 MG/DL (7-18); CALCIUM LEVEL 9.8 MG/DL (8.5-10.1); CARBON DIOXIDE LEVEL 26 MEQ/L (21-32); CHLORIDE LEVEL 106 MEQ/L (98-107); CREATININE FOR GFR 0.69 MG/DL (0.55-1.30); GLOMERULAR FILTRATION RATE > 60.0 (>60); GLUCOSE, FASTING 104 MG/DL (70-100); POTASSIUM SERUM 4.1 MEQ/L (3.5-5.1); SODIUM LEVEL 139 MEQ/L (136-145); TOTAL PROTEIN 7.3 GM/DL (6.4-8.2)
[2022-02-13 16:54] LABS: ERYTHROCYTE SEDIMENTATION RATE 27 mm/hr (0-20)
== END ==
LOC: M WUC 13:36
PROVIDERS: ATTEND Internal Medicine
DX: M05.79 Rheumatoid arthritis with rheumatoid factor of multiple sites without organ or systems involvement (principal)

== ENCOUNTER → 2022-03-27 | Outpatient (CLI) | payer OTHER ==
[2022-03-27 16:45] LABS: BASO % 0.6 % (0.0-1.0); EOS # 0.2 10^3/uL (0.0-0.5); EOS % 2.7 % (0.0-3.0); HEMATOCRIT 38.7 % (36.0-47.0); HEMOGLOBIN 12.8 g/dl (12.0-15.5); LYMPH # 1.4 10^3/uL (1.5-5.0); LYMPH % 22.2 % (24.0-44.0); MEAN CORPUSCULAR HEMOGLOBIN 31.6 pg (27.0-33.0); MEAN CORPUSCULAR HGB CONC 33.1 g/dl (32.0-36.5); MEAN CORPUSCULAR VOLUME 95.6 fl (80.0-96.0); MONO # 0.4 10^3/uL (0.0-0.8); MONO % 5.9 % (2.0-8.0); NEUTROPHILS # 4.3 10^3/uL (1.5-8.5); NEUTROPHILS % 68.1 % (36.0-66.0); PLATELET COUNT, AUTOMATED 301 10^3/uL (150-450); RED BLOOD COUNT 4.05 10^6/uL (4.00-5.40); WHITE BLOOD COUNT 6.3 10^3/uL (4.0-10.0)
[2022-03-27 17:28] LABS: ALBUMIN 4.2 GM/DL (3.2-5.2); ALT/SGPT 15 U/L (12-78); BILIRUBIN,DIRECT 0.1 MG/DL (0.0-0.2); BILIRUBIN,TOTAL 0.5 MG/DL (0.2-1.0); BLOOD UREA NITROGEN 11 MG/DL (7-18); C REACTIVE PROTEIN QUANTITATIV 0.39 MG/DL (0.00-0.30); CARBON DIOXIDE LEVEL 27 MEQ/L (21-32); CHLORIDE LEVEL 106 MEQ/L (98-107); CREATININE FOR GFR 0.78 MG/DL (0.55-1.30); GLOMERULAR FILTRATION RATE > 60.0 (>60); GLUCOSE, FASTING 83 MG/DL (70-100); POTASSIUM SERUM 4.4 MEQ/L (3.5-5.1); SODIUM LEVEL 139 MEQ/L (136-145); TOTAL PROTEIN 7.5 GM/DL (6.4-8.2)
[2022-03-27 17:48] LABS: ERYTHROCYTE SEDIMENTATION RATE 19 mm/hr (0-20)
== END ==
LOC: M WUC 11:37
PROVIDERS: ATTEND Internal Medicine
DX: M05.79 Rheumatoid arthritis with rheumatoid factor of multiple sites without organ or systems involvement (principal)

== ENCOUNTER → 2022-05-19 | Outpatient (CLI) | payer OTHER ==
[2022-05-19 13:45] LABS: ALBUMIN 3.9 GM/DL (3.2-5.2); ALT/SGPT 9 U/L (12-78); BILIRUBIN,DIRECT 0.1 MG/DL (0.0-0.2); BILIRUBIN,TOTAL 0.4 MG/DL (0.2-1.0); BLOOD UREA NITROGEN 12 MG/DL (7-18); C REACTIVE PROTEIN QUANTITATIV 0.97 MG/DL (0.00-0.30); CALCIUM LEVEL 9.8 MG/DL (8.5-10.1); CARBON DIOXIDE LEVEL 24 MEQ/L (21-32); CHLORIDE LEVEL 109 MEQ/L (98-107); CREATININE FOR GFR 0.69 MG/DL (0.55-1.30); GLOMERULAR FILTRATION RATE > 60.0 (>60); GLUCOSE, FASTING 92 MG/DL (70-100); POTASSIUM SERUM 4.4 MEQ/L (3.5-5.1); SODIUM LEVEL 139 MEQ/L (136-145); TOTAL PROTEIN 6.9 GM/DL (6.4-8.2)
[2022-05-19 13:51] LABS: BASO # 0.1 10^3/uL (0.0-0.2); BASO % 0.7 % (0.0-1.0); EOS # 0.2 10^3/uL (0.0-0.5); EOS % 2.1 % (0.0-3.0); HEMATOCRIT 34.9 % (36.0-47.0); LYMPH # 1.4 10^3/uL (1.5-5.0); LYMPH % 16.4 % (24.0-44.0); MEAN CORPUSCULAR HEMOGLOBIN 32.3 pg (27.0-33.0); MEAN CORPUSCULAR HGB CONC 34.4 g/dl (32.0-36.5); MEAN CORPUSCULAR VOLUME 93.8 fl (80.0-96.0); MONO # 0.6 10^3/uL (0.0-0.8); MONO % 6.4 % (2.0-8.0); NEUTROPHILS # 6.4 10^3/uL (1.5-8.5); NEUTROPHILS % 74.1 % (36.0-66.0); PLATELET COUNT, AUTOMATED 269 10^3/uL (150-450); RED BLOOD COUNT 3.72 10^6/uL (4.00-5.40); WHITE BLOOD COUNT 8.6 10^3/uL (4.0-10.0)
[2022-05-19 15:01] LABS: ERYTHROCYTE SEDIMENTATION RATE 27 mm/hr (0-20)
== END ==
LOC: M WUC 10:27
PROVIDERS: ATTEND Internal Medicine
DX: M05.79 Rheumatoid arthritis with rheumatoid factor of multiple sites without organ or systems involvement (principal)

== ENCOUNTER → 2022-05-21 | Outpatient (REF) | payer OTHER | LOC: M SFHCRHEU 12:55 | PROVIDERS: ATTEND Internal Medicine | DX: E55.9 Vitamin D deficiency, unspecified (principal) ==

== ENCOUNTER → 2022-08-07 | Outpatient (CLI) | payer OTHER ==
[2022-08-07 16:40] LABS: BASO % 0.7 % (0.0-1.0); EOS # 0.2 10^3/uL (0.0-0.5); EOS % 2.5 % (0.0-3.0); HEMATOCRIT 38.3 % (36.0-47.0); HEMOGLOBIN 12.6 g/dl (12.0-15.5); LYMPH # 1.5 10^3/uL (1.5-5.0); MEAN CORPUSCULAR HEMOGLOBIN 31.3 pg (27.0-33.0); MEAN CORPUSCULAR HGB CONC 32.9 g/dl (32.0-36.5); MONO # 0.6 10^3/uL (0.0-0.8); MONO % 9.8 % (2.0-8.0); NEUTROPHILS # 3.7 10^3/uL (1.5-8.5); NEUTROPHILS % 61.7 % (36.0-66.0); PLATELET COUNT, AUTOMATED 289 10^3/uL (150-450); RED BLOOD COUNT 4.03 10^6/uL (4.00-5.40); WHITE BLOOD COUNT 5.9 10^3/uL (4.0-10.0)
[2022-08-07 17:12] LABS: ERYTHROCYTE SEDIMENTATION RATE 28 mm/hr (0-20)
[2022-08-07 17:28] LABS: ALBUMIN 3.9 GM/DL (3.2-5.2); ALT/SGPT 14 U/L (12-78); BILIRUBIN,DIRECT < 0.1 MG/DL (0.0-0.2); BILIRUBIN,TOTAL 0.3 MG/DL (0.2-1.0); BLOOD UREA NITROGEN 11 MG/DL (7-18); CALCIUM LEVEL 9.4 MG/DL (8.5-10.1); CARBON DIOXIDE LEVEL 27 MEQ/L (21-32); CHLORIDE LEVEL 104 MEQ/L (98-107); CREATININE FOR GFR 0.85 MG/DL (0.55-1.30); GLOMERULAR FILTRATION RATE > 60.0 (>60); GLUCOSE, FASTING 110 MG/DL (70-100); POTASSIUM SERUM 4.1 MEQ/L (3.5-5.1); SODIUM LEVEL 137 MEQ/L (136-145); TOTAL PROTEIN 7.5 GM/DL (6.4-8.2)
== END ==
LOC: M WUC 15:12
PROVIDERS: ATTEND Internal Medicine
DX: M05.79 Rheumatoid arthritis with rheumatoid factor of multiple sites without organ or systems involvement (principal)

== ENCOUNTER → 2022-08-17 | Outpatient (REF) | payer OTHER | LOC: M SFHCRHEU 11:53 | PROVIDERS: ATTEND Internal Medicine | DX: M05.79 Rheumatoid arthritis with rheumatoid factor of multiple sites without organ or systems involvement (principal) ==

== ENCOUNTER → 2022-10-02 | Outpatient (CLI) | payer OTHER ==
[2022-10-02 17:33] LABS: BASO % 0.7 % (0.0-1.0); EOS # 0.1 10^3/uL (0.0-0.5); EOS % 2.3 % (0.0-3.0); HEMATOCRIT 40.3 % (36.0-47.0); HEMOGLOBIN 13.4 g/dl (12.0-15.5); LYMPH # 1.9 10^3/uL (1.5-5.0); LYMPH % 31.2 % (24.0-44.0); MEAN CORPUSCULAR HGB CONC 33.3 g/dl (32.0-36.5); MEAN CORPUSCULAR VOLUME 93.3 fl (80.0-96.0); MONO # 0.6 10^3/uL (0.0-0.8); MONO % 9.3 % (2.0-8.0); NEUTROPHILS # 3.4 10^3/uL (1.5-8.5); NEUTROPHILS % 56.2 % (36.0-66.0); PLATELET COUNT, AUTOMATED 248 10^3/uL (150-450); RED BLOOD COUNT 4.32 10^6/uL (4.00-5.40); WHITE BLOOD COUNT 6.1 10^3/uL (4.0-10.0)
[2022-10-02 17:52] LABS: BILIRUBIN,DIRECT 0.1 MG/DL (<0.4)
[2022-10-02 17:53] LABS: ALBUMIN 4.2 G/DL (3.2-5.2); ALKALINE PHOSPHATASE 63 U/L (46-116); ALT/SGPT 10 U/L (7.0-40); AST/SGOT 15 U/L (<34); BILIRUBIN,TOTAL 0.4 MG/DL (0.3-1.2); BLOOD UREA NITROGEN 9 MG/DL (9-23); CALCIUM LEVEL 9.5 MG/DL (8.5-10.1); CARBON DIOXIDE LEVEL 23 MMOL/L (20-31); CHLORIDE LEVEL 105 MMOL/L (98-107); CREATININE FOR GFR 0.71 MG/DL (0.55-1.30); GLOMERULAR FILTRATION RATE > 60.0 (>60); GLUCOSE, FASTING 102 MG/DL (60-100); POTASSIUM SERUM 4.3 MMOL/L (3.5-5.1); SODIUM LEVEL 137 MMOL/L (136-145); TOTAL PROTEIN 7.5 G/DL (5.7-8.2)
[2022-10-02 20:42] LABS: ERYTHROCYTE SEDIMENTATION RATE 14 mm/hr (0-20)
== END ==
LOC: M WUC 11:20
PROVIDERS: ATTEND Internal Medicine
DX: M05.79 Rheumatoid arthritis with rheumatoid factor of multiple sites without organ or systems involvement (principal)

== ENCOUNTER → 2023-01-20 | Outpatient (CLI) | payer MEDICAID, OTHER ==
[2023-01-20 22:23] LABS: BASO # 0.1 10^3/uL (0.0-0.2); EOS # 0.2 10^3/uL (0.0-0.5); HEMATOCRIT 35.6 % (36.0-47.0); HEMOGLOBIN 11.9 g/dl (12.0-15.5); LYMPH # 1.8 10^3/uL (1.5-5.0); LYMPH % 30.2 % (24.0-44.0); MEAN CORPUSCULAR HEMOGLOBIN 31.6 pg (27.0-33.0); MEAN CORPUSCULAR HGB CONC 33.4 g/dl (32.0-36.5); MEAN CORPUSCULAR VOLUME 94.4 fl (80.0-96.0); MONO # 0.7 10^3/uL (0.0-0.8); MONO % 11.6 % (2.0-8.0); NEUTROPHILS # 3.2 10^3/uL (1.5-8.5); PLATELET COUNT, AUTOMATED 303 10^3/uL (150-450); RED BLOOD COUNT 3.77 10^6/uL (4.00-5.40)
[2023-01-20 22:29] LABS: ERYTHROCYTE SEDIMENTATION RATE 33 mm/hr (0-20)
[2023-01-20 22:50] LABS: ALBUMIN 3.9 G/DL (3.2-5.2); ALKALINE PHOSPHATASE 57 U/L (46-116); ALT/SGPT < 9 U/L (7.0-40); AST/SGOT 14 U/L (<34); BILIRUBIN,DIRECT < 0.1 MG/DL (<0.4); BILIRUBIN,TOTAL 0.2 MG/DL (0.3-1.2); BLOOD UREA NITROGEN 14 MG/DL (9-23); CALCIUM LEVEL 9.5 MG/DL (8.5-10.1); CARBON DIOXIDE LEVEL 29 MMOL/L (20-31); CHLORIDE LEVEL 106 MMOL/L (98-107); CREATININE FOR GFR 0.67 MG/DL (0.55-1.30); GLOMERULAR FILTRATION RATE > 60.0 (>60); GLUCOSE, FASTING 92 MG/DL (60-100); POTASSIUM SERUM 4.4 MMOL/L (3.5-5.1); SODIUM LEVEL 139 MMOL/L (136-145); TOTAL PROTEIN 6.9 G/DL (5.7-8.2)
[2023-01-20 22:52] LABS: C REACTIVE PROTEIN QUANTITATIV < 0.40 MG/DL (<1.0)
== END ==
LOC: M WUC 15:24
PROVIDERS: ATTEND Internal Medicine
DX: M05.79 Rheumatoid arthritis with rheumatoid factor of multiple sites without organ or systems involvement (principal)

== ENCOUNTER → 2023-02-25 | Outpatient (REF) | payer OTHER ==
[2023-02-25 17:17] LABS: C REACTIVE PROTEIN QUANTITATIV < 0.40 MG/DL (<1.0)
[2023-02-25 17:19] LABS: ALBUMIN 4.4 G/DL (3.2-5.2); ALKALINE PHOSPHATASE 58 U/L (46-116); ALT/SGPT 14 U/L (7.0-40); AST/SGOT 14 U/L (<34); BILIRUBIN,DIRECT 0.1 MG/DL (<0.4); BILIRUBIN,TOTAL 0.4 MG/DL (0.3-1.2); BLOOD UREA NITROGEN 11 MG/DL (9-23); CALCIUM LEVEL 9.3 MG/DL (8.5-10.1); CARBON DIOXIDE LEVEL 26 MMOL/L (20-31); CHLORIDE LEVEL 105 MMOL/L (98-107); CREATININE FOR GFR 0.66 MG/DL (0.55-1.30); GLOMERULAR FILTRATION RATE > 60.0 (>60); GLUCOSE, FASTING 79 MG/DL (60-100); SODIUM LEVEL 137 MMOL/L (136-145); TOTAL PROTEIN 7.4 G/DL (5.7-8.2)
[2023-02-25 17:23] LABS: TOTAL 25(OH) VITAMIN D 31.8 NG/ML (20.0-100.0)
[2023-02-25 17:28] LABS: BASO # 0.1 10^3/uL (0.0-0.2); BASO % 1.1 % (0.0-1.0); EOS # 0.2 10^3/uL (0.0-0.5); EOS % 2.6 % (0.0-3.0); HEMATOCRIT 39.5 % (36.0-47.0); HEMOGLOBIN 13.2 g/dl (12.0-15.5); LYMPH # 1.8 10^3/uL (1.5-5.0); LYMPH % 31.7 % (24.0-44.0); MEAN CORPUSCULAR HEMOGLOBIN 31.7 pg (27.0-33.0); MEAN CORPUSCULAR HGB CONC 33.4 g/dl (32.0-36.5); MONO # 0.8 10^3/uL (0.0-0.8); MONO % 13.9 % (2.0-8.0); NEUTROPHILS # 2.8 10^3/uL (1.5-8.5); PLATELET COUNT, AUTOMATED 240 10^3/uL (150-450); RED BLOOD COUNT 4.16 10^6/uL (4.00-5.40); WHITE BLOOD COUNT 5.7 10^3/uL (4.0-10.0)
[2023-02-25 18:42] LABS: ERYTHROCYTE SEDIMENTATION RATE 21 mm/hr (0-20)
== END ==
LOC: M SFHCRHEU 11:56
PROVIDERS: ATTEND Internal Medicine
DX: E55.9 Vitamin D deficiency, unspecified (principal); M05.79 Rheumatoid arthritis with rheumatoid factor of multiple sites without organ or systems involvement

== ENCOUNTER → 2023-06-22 | Outpatient (CLI) | payer OTHER ==
[2023-06-22 17:09] LABS: BASO # 0.1 10^3/uL (0.0-0.2); BASO % 0.7 % (0.0-1.0); EOS # 0.2 10^3/uL (0.0-0.5); EOS % 2.2 % (0.0-3.0); HEMATOCRIT 36.1 % (36.0-47.0); HEMOGLOBIN 12.2 g/dl (12.0-15.5); LYMPH # 2.5 10^3/uL (1.5-5.0); LYMPH % 28.6 % (24.0-44.0); MEAN CORPUSCULAR HEMOGLOBIN 31.4 pg (27.0-33.0); MEAN CORPUSCULAR HGB CONC 33.8 g/dl (32.0-36.5); MONO # 0.8 10^3/uL (0.0-0.8); MONO % 9.8 % (2.0-8.0); NEUTROPHILS % 58.4 % (36.0-66.0); PLATELET COUNT, AUTOMATED 263 10^3/uL (150-450); RED BLOOD COUNT 3.88 10^6/uL (4.00-5.40); WHITE BLOOD COUNT 8.6 10^3/uL (4.0-10.0)
[2023-06-22 17:26] LABS: ALBUMIN 3.8 G/DL (3.2-5.2); ALKALINE PHOSPHATASE 54 U/L (46-116); ALT/SGPT < 9 U/L (7.0-40); AST/SGOT < 8 U/L (<34); BILIRUBIN,DIRECT < 0.1 MG/DL (<0.4); BILIRUBIN,TOTAL 0.2 MG/DL (0.3-1.2); BLOOD UREA NITROGEN 12 MG/DL (9-23); C REACTIVE PROTEIN QUANTITATIV < 0.40 MG/DL (<1.0); CALCIUM LEVEL 9.1 MG/DL (8.5-10.1); CARBON DIOXIDE LEVEL 25 MMOL/L (20-31); CHLORIDE LEVEL 106 MMOL/L (98-107); CREATININE FOR GFR 0.75 MG/DL (0.55-1.30); GLOMERULAR FILTRATION RATE > 60.0 (>60); GLUCOSE, FASTING 91 MG/DL (60-100); POTASSIUM SERUM 4.3 MMOL/L (3.5-5.1); SODIUM LEVEL 138 MMOL/L (136-145); TOTAL PROTEIN 6.8 G/DL (5.7-8.2)
[2023-06-22 18:18] LABS: ERYTHROCYTE SEDIMENTATION RATE 17 mm/hr (0-20)
== END ==
LOC: M WUC 14:28
PROVIDERS: ATTEND Internal Medicine
DX: M05.79 Rheumatoid arthritis with rheumatoid factor of multiple sites without organ or systems involvement (principal)

== ENCOUNTER → 2023-09-08 | Outpatient (REF) | payer OTHER ==
[2023-09-08 19:36] LABS: BASO # 0.1 10^3/uL (0.0-0.2); BASO % 0.8 % (0.0-1.0); EOS # 0.1 10^3/uL (0.0-0.5); EOS % 2.1 % (0.0-3.0); HEMATOCRIT 36.6 % (36.0-47.0); HEMOGLOBIN 12.5 g/dl (12.0-15.5); LYMPH # 2.4 10^3/uL (1.5-5.0); LYMPH % 37.2 % (24.0-44.0); MEAN CORPUSCULAR HEMOGLOBIN 31.9 pg (27.0-33.0); MEAN CORPUSCULAR HGB CONC 34.2 g/dl (32.0-36.5); MEAN CORPUSCULAR VOLUME 93.4 fl (80.0-96.0); MONO # 0.5 10^3/uL (0.0-0.8); MONO % 8.3 % (2.0-8.0); NEUTROPHILS # 3.4 10^3/uL (1.5-8.5); NEUTROPHILS % 51.4 % (36.0-66.0); PLATELET COUNT, AUTOMATED 259 10^3/uL (150-450); RED BLOOD COUNT 3.92 10^6/uL (4.00-5.40); WHITE BLOOD COUNT 6.5 10^3/uL (4.0-10.0)
[2023-09-08 19:43] LABS: ERYTHROCYTE SEDIMENTATION RATE 20 mm/hr (0-20)
[2023-09-08 19:51] LABS: C REACTIVE PROTEIN QUANTITATIV < 0.40 MG/DL (<1.0)
[2023-09-08 19:53] LABS: ALKALINE PHOSPHATASE 56 U/L (46-116); ALT/SGPT 11 U/L (7.0-40); AST/SGOT 14 U/L (<34); BILIRUBIN,DIRECT 0.1 MG/DL (<0.4); BILIRUBIN,TOTAL 0.3 MG/DL (0.3-1.2); BLOOD UREA NITROGEN 10 MG/DL (9-23); CALCIUM LEVEL 9.2 MG/DL (8.5-10.1); CARBON DIOXIDE LEVEL 26 MMOL/L (20-31); CHLORIDE LEVEL 105 MMOL/L (98-107); CREATININE FOR GFR 0.85 MG/DL (0.55-1.30); GLOMERULAR FILTRATION RATE > 60.0 (>60); GLUCOSE, FASTING 97 MG/DL (60-100); POTASSIUM SERUM 4.1 MMOL/L (3.5-5.1); SODIUM LEVEL 138 MMOL/L (136-145); TOTAL PROTEIN 7.2 G/DL (5.7-8.2)
== END ==
LOC: M LAB REF 18:54
PROVIDERS: ATTEND Internal Medicine
DX: M05.79 Rheumatoid arthritis with rheumatoid factor of multiple sites without organ or systems involvement (principal)

== ENCOUNTER → 2023-10-07 | Outpatient (CLI) | payer OTHER ==
[2023-10-07 10:29] LABS: BASO # 0.1 10^3/uL (0.0-0.2); EOS # 0.1 10^3/uL (0.0-0.5); EOS % 2.7 % (0.0-3.0); HEMATOCRIT 38.2 % (36.0-47.0); HEMOGLOBIN 12.8 g/dl (12.0-15.5); LYMPH # 1.5 10^3/uL (1.5-5.0); LYMPH % 31.2 % (24.0-44.0); MEAN CORPUSCULAR HEMOGLOBIN 31.8 pg (27.0-33.0); MEAN CORPUSCULAR HGB CONC 33.5 g/dl (32.0-36.5); MONO # 0.6 10^3/uL (0.0-0.8); MONO % 11.3 % (2.0-8.0); NEUTROPHILS # 2.6 10^3/uL (1.5-8.5); NEUTROPHILS % 53.6 % (36.0-66.0); PLATELET COUNT, AUTOMATED 272 10^3/uL (150-450); RED BLOOD COUNT 4.02 10^6/uL (4.00-5.40); WHITE BLOOD COUNT 4.9 10^3/uL (4.0-10.0)
[2023-10-07 10:51] LABS: ERYTHROCYTE SEDIMENTATION RATE 16 mm/hr (0-20)
[2023-10-07 11:11] LABS: C REACTIVE PROTEIN QUANTITATIV < 0.40 MG/DL (<1.0)
[2023-10-07 11:13] LABS: ALBUMIN 3.8 G/DL (3.2-5.2); ALKALINE PHOSPHATASE 59 U/L (46-116); ALT/SGPT 10 U/L (7.0-40); AST/SGOT 10 U/L (<34); BILIRUBIN,DIRECT 0.1 MG/DL (<0.4); BILIRUBIN,TOTAL 0.3 MG/DL (0.3-1.2); BLOOD UREA NITROGEN 7 MG/DL (9-23); CALCIUM LEVEL 9.3 MG/DL (8.5-10.1); CARBON DIOXIDE LEVEL 28 MMOL/L (20-31); CHLORIDE LEVEL 105 MMOL/L (98-107); GLOMERULAR FILTRATION RATE > 60.0 (>60); GLUCOSE, FASTING 90 MG/DL (60-100); SODIUM LEVEL 140 MMOL/L (136-145); TOTAL PROTEIN 6.8 G/DL (5.7-8.2)
== END ==
LOC: M WUC 08:29
PROVIDERS: ATTEND Internal Medicine
DX: M05.79 Rheumatoid arthritis with rheumatoid factor of multiple sites without organ or systems involvement (principal)

== ENCOUNTER → 2023-11-04 | Outpatient (CLI) | payer OTHER, SELFPAY ==
[2023-11-04 09:41] LABS: BASO % 0.9 % (0.0-1.0); EOS # 0.3 10^3/uL (0.0-0.5); EOS % 5.5 % (0.0-3.0); HEMATOCRIT 38.5 % (36.0-47.0); HEMOGLOBIN 12.9 g/dl (12.0-15.5); LYMPH # 1.7 10^3/uL (1.5-5.0); LYMPH % 37.1 % (24.0-44.0); MEAN CORPUSCULAR HEMOGLOBIN 31.4 pg (27.0-33.0); MEAN CORPUSCULAR HGB CONC 33.5 g/dl (32.0-36.5); MEAN CORPUSCULAR VOLUME 93.7 fl (80.0-96.0); MONO # 0.6 10^3/uL (0.0-0.8); MONO % 12.9 % (2.0-8.0); NEUTROPHILS % 43.4 % (36.0-66.0); PLATELET COUNT, AUTOMATED 313 10^3/uL (150-450); RED BLOOD COUNT 4.11 10^6/uL (4.00-5.40); WHITE BLOOD COUNT 4.6 10^3/uL (4.0-10.0)
[2023-11-04 09:47] LABS: ERYTHROCYTE SEDIMENTATION RATE 23 mm/hr (0-20)
[2023-11-04 10:21] LABS: C REACTIVE PROTEIN QUANTITATIV < 0.40 MG/DL (<1.0)
[2023-11-04 10:23] LABS: ALBUMIN 3.8 G/DL (3.2-5.2); ALKALINE PHOSPHATASE 63 U/L (46-116); ALT/SGPT 28 U/L (7.0-40); AST/SGOT 16 U/L (<34); BILIRUBIN,DIRECT 0.2 MG/DL (<0.4); BILIRUBIN,TOTAL 0.5 MG/DL (0.3-1.2); BLOOD UREA NITROGEN 9 MG/DL (9-23); CALCIUM LEVEL 9.4 MG/DL (8.5-10.1); CARBON DIOXIDE LEVEL 25 MMOL/L (20-31); CHLORIDE LEVEL 105 MMOL/L (98-107); CREATININE FOR GFR 0.61 MG/DL (0.55-1.30); GLOMERULAR FILTRATION RATE > 60.0 (>60); GLUCOSE, FASTING 106 MG/DL (60-100); POTASSIUM SERUM 4.2 MMOL/L (3.5-5.1); SODIUM LEVEL 135 MMOL/L (136-145)
== END ==
LOC: M WUC 08:41
PROVIDERS: ATTEND Internal Medicine
DX: M05.79 Rheumatoid arthritis with rheumatoid factor of multiple sites without organ or systems involvement (principal)

== ENCOUNTER → 2024-02-03 | Outpatient (REF) | payer OTHER | LOC: M SFHCRHEU 16:45 | PROVIDERS: ATTEND Internal Medicine | DX: M05.79 Rheumatoid arthritis with rheumatoid factor of multiple sites without organ or systems involvement (principal); E55.9 Vitamin D deficiency, unspecified ==

== ENCOUNTER → 2024-02-04 | Outpatient (CLI) | payer OTHER ==
[2024-02-04 11:19] LABS: BASO # 0.1 10^3/uL (0.0-0.2); BASO % 1.2 % (0.0-1.0); EOS # 0.2 10^3/uL (0.0-0.5); EOS % 3.9 % (0.0-3.0); HEMATOCRIT 40.9 % (36.0-47.0); HEMOGLOBIN 13.7 g/dl (12.0-15.5); LYMPH # 1.2 10^3/uL (1.5-5.0); LYMPH % 24.2 % (24.0-44.0); MEAN CORPUSCULAR HEMOGLOBIN 31.1 pg (27.0-33.0); MEAN CORPUSCULAR HGB CONC 33.5 g/dl (32.0-36.5); MONO # 0.4 10^3/uL (0.0-0.8); MONO % 8.9 % (2.0-8.0); NEUTROPHILS % 61.6 % (36.0-66.0); PLATELET COUNT, AUTOMATED 266 10^3/uL (150-450); WHITE BLOOD COUNT 4.8 10^3/uL (4.0-10.0)
[2024-02-04 11:30] LABS: ERYTHROCYTE SEDIMENTATION RATE 26 mm/hr (0-20)
[2024-02-04 11:45] LABS: C REACTIVE PROTEIN QUANTITATIV < 0.40 MG/DL (<1.0)
[2024-02-04 11:46] LABS: ALBUMIN 3.9 G/DL (3.2-5.2); ALKALINE PHOSPHATASE 60 U/L (46-116); ALT/SGPT < 9 U/L (7.0-40); AST/SGOT 10 U/L (<34); BILIRUBIN,DIRECT 0.1 MG/DL (<0.4); BILIRUBIN,TOTAL 0.3 MG/DL (0.3-1.2); BLOOD UREA NITROGEN 11 MG/DL (9-23); CALCIUM LEVEL 9.5 MG/DL (8.5-10.1); CARBON DIOXIDE LEVEL 28 MMOL/L (20-31); CHLORIDE LEVEL 108 MMOL/L (98-107); CREATININE FOR GFR 0.73 MG/DL (0.55-1.30); GLOMERULAR FILTRATION RATE > 60.0 (>60); GLUCOSE, FASTING 100 MG/DL (60-100); POTASSIUM SERUM 4.7 MMOL/L (3.5-5.1); SODIUM LEVEL 140 MMOL/L (136-145)
== END ==
LOC: M WUC 08:06
PROVIDERS: ATTEND Internal Medicine
DX: M05.79 Rheumatoid arthritis with rheumatoid factor of multiple sites without organ or systems involvement (principal); E55.9 Vitamin D deficiency, unspecified

== ENCOUNTER → 2024-05-01 | Outpatient (CLI) | payer OTHER ==
[~2024-05-01] MED LIST changes: +DOXY-323 PO; -DOXY-443 PO; +ONDA-282 PO; -ONDA4TAB6 PO
[2024-05-01 17:36] LABS: BASO # 0.1 10^3/uL (0.0-0.2); BASO % 0.7 % (0.0-1.0); EOS # 0.2 10^3/uL (0.0-0.5); EOS % 1.8 % (0.0-3.0); HEMOGLOBIN 14.1 g/dl (12.0-15.5); LYMPH % 22.8 % (24.0-44.0); MEAN CORPUSCULAR HEMOGLOBIN 31.9 pg (27.0-33.0); MEAN CORPUSCULAR HGB CONC 34.4 g/dl (32.0-36.5); MEAN CORPUSCULAR VOLUME 92.8 fl (80.0-96.0); MONO # 0.9 10^3/uL (0.0-0.8); MONO % 10.7 % (2.0-8.0); NEUTROPHILS # 5.5 10^3/uL (1.5-8.5); NEUTROPHILS % 63.9 % (36.0-66.0); PLATELET COUNT, AUTOMATED 253 10^3/uL (150-450); RED BLOOD COUNT 4.42 10^6/uL (4.00-5.40); WHITE BLOOD COUNT 8.5 10^3/uL (4.0-10.0)
[2024-05-01 17:57] LABS: C REACTIVE PROTEIN QUANTITATIV < 0.40 MG/DL (<1.0)
[2024-05-01 17:59] LABS: ALBUMIN 4.3 G/DL (3.2-5.2); ALKALINE PHOSPHATASE 60 U/L (46-116); ALT/SGPT 26 U/L (7.0-40); AST/SGOT 15 U/L (<34); BILIRUBIN,DIRECT < 0.1 MG/DL (<0.4); BILIRUBIN,TOTAL 0.3 MG/DL (0.3-1.2); BLOOD UREA NITROGEN 12 MG/DL (9-23); CALCIUM LEVEL 9.6 MG/DL (8.5-10.1); CARBON DIOXIDE LEVEL 24 MMOL/L (20-31); CHLORIDE LEVEL 104 MMOL/L (98-107); CREATININE FOR GFR 0.69 MG/DL (0.55-1.30); GLOMERULAR FILTRATION RATE > 60.0 (>60); GLUCOSE, FASTING 101 MG/DL (60-100); POTASSIUM SERUM 4.2 MMOL/L (3.5-5.1); SODIUM LEVEL 135 MMOL/L (136-145); TOTAL PROTEIN 7.6 G/DL (5.7-8.2)
[2024-05-01 18:12] LABS: ERYTHROCYTE SEDIMENTATION RATE 29 mm/hr (0-20)
== END ==
LOC: M WUC 13:56
PROVIDERS: ATTEND Internal Medicine
DX: M05.79 Rheumatoid arthritis with rheumatoid factor of multiple sites without organ or systems involvement (principal)

== ENCOUNTER → 2024-05-10 | Outpatient (CLI) | payer OTHER | LOC: M WUC 11:53 | PROVIDERS: ATTEND Internal Medicine | DX: R06.02 Shortness of breath (principal) ==

== ENCOUNTER → 2024-05-25 | Outpatient (CLI) | payer OTHER | LOC: M CARPUL 10:51 | PROVIDERS: ATTEND Internal Medicine | DX: R06.02 Shortness of breath (principal); I34.0 Nonrheumatic mitral (valve) insufficiency ==

== ENCOUNTER → 2024-05-26 | Outpatient (CLI) | payer OTHER | LOC: M RAD 06:15 | PROVIDERS: ATTEND Internal Medicine | DX: R06.02 Shortness of breath (principal); J43.9 Emphysema, unspecified; N20.0 Calculus of kidney; R91.8 Other nonspecific abnormal finding of lung field ==

== ENCOUNTER → 2024-06-01 | Outpatient (CLI) | payer OTHER | LOC: M WUC 08:44 | PROVIDERS: ATTEND Internal Medicine | DX: E55.9 Vitamin D deficiency, unspecified (principal) ==

== ENCOUNTER → 2024-06-28 | Outpatient (CLI) | payer OTHER ==
[~2024-06-28] MED LIST changes: +METHACHOLINE KIT (6 VIAL.NEB PREMIX) INH ONE
== END ==
LOC: M CARPUL 08:00
PROVIDERS: ATTEND Internal Medicine
DX: R06.02 Shortness of breath (principal)
CPT/HCPCS: 94070; 95070; J7674

== ENCOUNTER → 2024-10-02 | Outpatient (CLI) | payer OTHER ==
[~2024-10-02] MED LIST changes: -DOXY-323 PO; +DOXY-441 PO; -METHACHOLINE KIT (6 VIAL.NEB PREMIX) INH ONE
== END ==
LOC: M RAD 07:13
PROVIDERS: ATTEND Internal Medicine Pulmonary Disease
DX: Z87.09 Personal history of other diseases of the respiratory system (principal); N20.0 Calculus of kidney

== ENCOUNTER → 2024-11-02 | Outpatient (CLI) | payer OTHER ==
[2024-11-02 17:19] LABS: BASO % 0.4 % (0.0-1.0); HEMATOCRIT 37.4 % (36.0-47.0); HEMOGLOBIN 12.7 g/dl (12.0-15.5); LYMPH # 0.5 10^3/uL (1.5-5.0); MEAN CORPUSCULAR VOLUME 91.2 fl (80.0-96.0); MONO # 0.2 10^3/uL (0.0-0.8); MONO % 1.8 % (2.0-8.0); NEUTROPHILS # 7.7 10^3/uL (1.5-8.5); NEUTROPHILS % 91.3 % (36.0-66.0); PLATELET COUNT, AUTOMATED 371 10^3/uL (150-450); WHITE BLOOD COUNT 8.5 10^3/uL (4.0-10.0)
[2024-11-02 17:25] LABS: ERYTHROCYTE SEDIMENTATION RATE 36 mm/hr (0-20)
[2024-11-02 17:47] LABS: C REACTIVE PROTEIN QUANTITATIV < 0.50 MG/DL (<1.0)
[2024-11-02 17:48] LABS: ALBUMIN 3.8 G/DL (3.2-5.2); ALKALINE PHOSPHATASE 67 U/L (35-104); ALT/SGPT 13 U/L (7.0-40); AST/SGOT 8 U/L (<34); BILIRUBIN,DIRECT < 0.1 MG/DL (<0.4); BILIRUBIN,TOTAL 0.2 MG/DL (0.3-1.2); BLOOD UREA NITROGEN 10 MG/DL (9-23); CALCIUM LEVEL 10.1 MG/DL (8.5-10.1); CARBON DIOXIDE LEVEL 26 MMOL/L (20-31); CHLORIDE LEVEL 104 MMOL/L (98-107); CREATININE FOR GFR 0.66 MG/DL (0.55-1.30); GLOMERULAR FILTRATION RATE > 60.0 (>60); GLUCOSE, FASTING 235 MG/DL (60-100); POTASSIUM SERUM 4.2 MMOL/L (3.5-5.1); SODIUM LEVEL 138 MMOL/L (136-145); TOTAL PROTEIN 7.4 G/DL (5.7-8.2)
== END ==
LOC: M WUC 14:12
PROVIDERS: ATTEND Internal Medicine
DX: M05.79 Rheumatoid arthritis with rheumatoid factor of multiple sites without organ or systems involvement (principal)

== ENCOUNTER → 2025-02-05 | Outpatient (CLI) | payer OTHER ==
[2025-02-05 14:42] LABS: BASO # 0.1 10^3/uL (0.0-0.2); BASO % 0.8 % (0.0-1.0); EOS # 0.1 10^3/uL (0.0-0.5); EOS % 1.5 % (0.0-3.0); HEMATOCRIT 38.9 % (36.0-47.0); HEMOGLOBIN 12.9 g/dl (12.0-15.5); LYMPH # 2.1 10^3/uL (1.5-5.0); MEAN CORPUSCULAR HEMOGLOBIN 30.3 pg (27.0-33.0); MEAN CORPUSCULAR HGB CONC 33.2 g/dl (32.0-36.5); MEAN CORPUSCULAR VOLUME 91.3 fl (80.0-96.0); MONO # 0.7 10^3/uL (0.0-0.8); NEUTROPHILS # 5.8 10^3/uL (1.5-8.5); NEUTROPHILS % 65.4 % (36.0-66.0); PLATELET COUNT, AUTOMATED 337 10^3/uL (150-450); RED BLOOD COUNT 4.26 10^6/uL (4.00-5.40); WHITE BLOOD COUNT 8.8 10^3/uL (4.0-10.0)
[2025-02-05 14:49] LABS: ERYTHROCYTE SEDIMENTATION RATE 36 mm/hr (0-20)
[2025-02-05 15:07] LABS: C REACTIVE PROTEIN QUANTITATIV < 0.50 MG/DL (<1.0)
[2025-02-05 15:17] LABS: ALBUMIN 3.9 G/DL (3.2-5.2); ALKALINE PHOSPHATASE 60 U/L (35-104); ALT/SGPT 10 U/L (7.0-40); AST/SGOT 9 U/L (<34); BILIRUBIN,DIRECT < 0.1 MG/DL (<0.4); BILIRUBIN,TOTAL 0.3 MG/DL (0.3-1.2); BLOOD UREA NITROGEN 14 MG/DL (9-23); CALCIUM LEVEL 9.1 MG/DL (8.5-10.1); CARBON DIOXIDE LEVEL 26 MMOL/L (20-31); CHLORIDE LEVEL 107 MMOL/L (98-107); CREATININE FOR GFR 0.77 MG/DL (0.55-1.30); GLOMERULAR FILTRATION RATE > 90.0 (>60); GLUCOSE, FASTING 106 MG/DL (60-100); POTASSIUM SERUM 4.1 MMOL/L (3.5-5.1); SODIUM LEVEL 140 MMOL/L (136-145); TOTAL PROTEIN 7.5 G/DL (5.7-8.2)
== END ==
LOC: M WUC 12:54
PROVIDERS: ATTEND Internal Medicine
DX: M05.79 Rheumatoid arthritis with rheumatoid factor of multiple sites without organ or systems involvement (principal)

== ENCOUNTER → 2025-05-02 | Outpatient (CLI) | payer OTHER ==
[~2025-05-02] MED LIST changes: -FLOM0.4C39 PO; +TAMS-18 PO
== END ==
LOC: M WUC 10:32
PROVIDERS: ATTEND Internal Medicine
DX: R22.32 Localized swelling, mass and lump, left upper limb (principal)

== ENCOUNTER → 2025-05-02 | Outpatient (CLI) | payer OTHER ==
[2025-05-02 12:33] LABS: BASO # 0.1 10^3/uL (0.0-0.2); BASO % 0.6 % (0.0-1.0); EOS # 0.2 10^3/uL (0.0-0.5); EOS % 2.8 % (0.0-3.0); LYMPH # 1.7 10^3/uL (1.5-5.0); LYMPH % 20.0 % (24.0-44.0); MONO # 0.8 10^3/uL (0.0-0.8); MONO % 8.9 % (2.0-8.0); NEUTROPHILS # 5.7 10^3/uL (1.5-8.5); NEUTROPHILS % 67.3 % (36.0-66.0); PLATELET COUNT, AUTOMATED 345 10^3/uL (150-450)
[2025-05-02 12:43] LABS: ERYTHROCYTE SEDIMENTATION RATE 38 mm/hr (0-20)
[2025-05-02 13:05] LABS: ALT/SGPT 11 U/L (7.0-40); AST/SGOT 14 U/L (<34); C REACTIVE PROTEIN QUANTITATIV 0.78 MG/DL (<1.0); CALCIUM LEVEL 9.4 MG/DL (8.5-10.1); CARBON DIOXIDE LEVEL 26 MMOL/L (20-31); CHLORIDE LEVEL 105 MMOL/L (98-107); CREATININE FOR GFR 0.74 MG/DL (0.55-1.30); GLOMERULAR FILTRATION RATE > 90.0 (>60); POTASSIUM SERUM 4.7 MMOL/L (3.5-5.1); SODIUM LEVEL 139 MMOL/L (136-145)
== END ==
LOC: M WUC 10:29
PROVIDERS: ATTEND Internal Medicine
DX: M05.79 Rheumatoid arthritis with rheumatoid factor of multiple sites without organ or systems involvement (principal)

== ENCOUNTER → 2025-05-03 | Outpatient (CLI) | payer OTHER | LOC: M WUC 14:46 | PROVIDERS: ATTEND Internal Medicine | DX: M19.032 Primary osteoarthritis, left wrist (principal); M25.532 Pain in left wrist ==

== ENCOUNTER → 2025-05-03 | Outpatient (REF) | payer OTHER | LOC: M SFHCRHEU 13:41 | PROVIDERS: ATTEND Internal Medicine | DX: M05.79 Rheumatoid arthritis with rheumatoid factor of multiple sites without organ or systems involvement (principal) ==

== ENCOUNTER → 2025-05-09 | Outpatient (REF) | payer OTHER ==
[2025-05-11 12:12] LABS: BVAB 2 POSITIVE (NEGATIVE); CANDIDA GLABRATA NAA NOT DETECTED (NOT DETECTED); TRICH VAG BY NAA NOT DETECTED (NOT DETECTED)
[2025-05-11 14:12] LABS: CHLAMYDIA TRACHOMATIS NAA NOT DETECTED (NOT DETECTED)
[2025-05-13 04:23] LABS: HPV APTIMA Not Detected (Not Detected)
== END ==
LOC: M SFHCLERA 16:46
PROVIDERS: ATTEND Student in an Organized Health Care Education/Training Program
DX: Z01.419 Encounter for gynecological examination (general) (routine) without abnormal findings (principal); N93.0 Postcoital and contact bleeding
CPT/HCPCS: 81513; 87481; 87591; 87624; 87661; G0123

== ENCOUNTER → 2025-05-24 | Outpatient (CLI) | payer OTHER ==
[2025-05-24 15:48] LABS: HIV 1&2 SCREEN NEGATIVE (NEGATIVE)
[2025-05-24 16:26] LABS: GC DNA AMPLIFICATION NEGATIVE (NEGATIVE)
== END ==
LOC: M WUC 12:25
PROVIDERS: ATTEND Student in an Organized Health Care Education/Training Program
DX: Z01.419 Encounter for gynecological examination (general) (routine) without abnormal findings (principal)

== ENCOUNTER → 2025-05-24 | Outpatient (CLI) | payer OTHER | LOC: M RAD 11:02 | PROVIDERS: ATTEND Internal Medicine | DX: R22.32 Localized swelling, mass and lump, left upper limb (principal) ==

== ENCOUNTER → 2025-07-12 | Outpatient (CLI) | payer OTHER ==
[~2025-07-12] MED LIST changes: -IBUP-1022 PO; +IBUP600T42 PO
[2025-07-12 12:59] LABS: BASO # 0.1 10^3/uL (0.0-0.2); BASO % 0.9 % (0.0-1.0); EOS # 0.3 10^3/uL (0.0-0.5); EOS % 3.9 % (0.0-3.0); LYMPH # 1.7 10^3/uL (1.5-5.0); LYMPH % 26.1 % (24.0-44.0); MONO # 0.5 10^3/uL (0.0-0.8); MONO % 7.4 % (2.0-8.0); NEUTROPHILS # 3.9 10^3/uL (1.5-8.5); NEUTROPHILS % 61.4 % (36.0-66.0); PLATELET COUNT, AUTOMATED 314 10^3/uL (150-450)
[2025-07-12 13:06] LABS: ALT/SGPT 13 U/L (7.0-40); AST/SGOT 16 U/L (<34); C REACTIVE PROTEIN QUANTITATIV < 0.50 MG/DL (<1.0); CALCIUM LEVEL 9.5 MG/DL (8.5-10.1); CARBON DIOXIDE LEVEL 26 MMOL/L (20-31); CHLORIDE LEVEL 108 MMOL/L (98-107); CREATININE FOR GFR 0.72 MG/DL (0.55-1.30); GLOMERULAR FILTRATION RATE > 90.0 (>60); POTASSIUM SERUM 4.3 MMOL/L (3.5-5.1); SODIUM LEVEL 139 MMOL/L (136-145)
[2025-07-12 13:08] LABS: ERYTHROCYTE SEDIMENTATION RATE 31 mm/hr (0-20)
== END ==
LOC: M WUC 08:27
PROVIDERS: ATTEND Internal Medicine
DX: M05.79 Rheumatoid arthritis with rheumatoid factor of multiple sites without organ or systems involvement (principal)

== ENCOUNTER → 2025-09-05 | Outpatient (CLI) | payer OTHER ==
[2025-09-05 15:15] LABS: BASO # 0.0 10^3/uL (0.0-0.2); BASO % 0.4 % (0.0-1.0); EOS # 0.2 10^3/uL (0.0-0.5); EOS % 3.5 % (0.0-3.0); LYMPH # 1.9 10^3/uL (1.5-5.0); LYMPH % 27.2 % (24.0-44.0); MONO # 0.6 10^3/uL (0.0-0.8); MONO % 9.0 % (2.0-8.0); NEUTROPHILS # 4.1 10^3/uL (1.5-8.5); NEUTROPHILS % 59.8 % (36.0-66.0); PLATELET COUNT, AUTOMATED 338 10^3/uL (150-450)
[2025-09-05 15:41] LABS: ALT/SGPT 13 U/L (7.0-40); AST/SGOT 13 U/L (<34); C REACTIVE PROTEIN QUANTITATIV < 0.50 MG/DL (<1.0); CALCIUM LEVEL 9.1 MG/DL (8.5-10.1); CARBON DIOXIDE LEVEL 26 MMOL/L (20-31); CHLORIDE LEVEL 107 MMOL/L (98-107); CREATININE FOR GFR 0.69 MG/DL (0.55-1.30); GLOMERULAR FILTRATION RATE > 90.0 (>60); POTASSIUM SERUM 4.3 MMOL/L (3.5-5.1); SODIUM LEVEL 138 MMOL/L (136-145)
== END ==
LOC: M WUC 11:48
PROVIDERS: ATTEND Internal Medicine
DX: M05.79 Rheumatoid arthritis with rheumatoid factor of multiple sites without organ or systems involvement (principal)